=== PATIENT | male | born 1945 | race Caucasian/White ===

== ENCOUNTER 2017-06-16 15:31 | Observation (INO) | payer OTHER ==
--- NOTE | 2017-06-16 16:07 | RAD REPORT ---
EXAM DESCRIPTION: CT - Head Brain Wo Cont - 06/16/2017 3:59 pm CLINICAL HISTORY: Hallucinations, altered mental status COMPARISON: None. TECHNIQUE: Axial 5 mm thick images of the head were obtained without IV contrast. All CT scans are performed using dose optimization technique as appropriate and may include automated exposure control or mA/KV adjustment according to patient size. FINDINGS: No intracranial hemorrhage, mass, edema or shift of mid-line structures. No acute cortical based infarction. No cortical edema or sulcal effacement. 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 No abnormal extra-axial fluid collections. Ventricles are in propor tion to volume loss. Arterial calcifications are present. Mastoid air cells and visualized portions of the paranasal sinuses are clear. No acute bony findings. IMPRESSION: Moderate atrophy and mild to moderate chronic ischemic changes are present. No acute intracranial finding.
--- NOTE | 2017-06-16 16:16 | RAD REPORT ---
EXAM DESCRIPTION: [place] Single View06/16/2017 4:09 pm CLINICAL HISTORY: Chest pain COMPARISON: 2016 FINDINGS: The lungs appear clear of acute infiltrate. The heart is upper limits normal size IMPRESSION: No acute abnormalities displayed
[2017-06-16] MEDS ORDERED: NA CHLORIDE 0.9% 1,000 ML ONE (16:26)
[2017-06-16 16:33] LABS: Absolute Lymphocytes (CBC) 2.3 K/uL (0.7-4.9); Absolute Monocytes 0.8 K/uL (0.1-1.3); Absolute Neutrophil 4.9 K/uL (1.8-8.0); Basophils % 1.2 % (0-1.3); Eosinophils % 3.4 % (0-4.4); Hematocrit 33.5 % (39.6-49.0); Lymphocytes % 27.4 % (15.3-44.8); MCH 22.4 pg (27.0-35.0); MCV 71.2 fL (80-100); MPV 8.2 fL (7.6-11.3); Monocytes % 9.5 % (3.3-12.3); RBC Red Blood Cell Count 4.71 M/uL (4.33-5.43)
[2017-06-16 16:42] LABS: Protime INR 0.92
[2017-06-16 16:54] LABS: Bilirubin Direct 0.1 mg/dL (0-0.2); Bilirubin Total 0.5 mg/dL (0.3-1.2); C-Reactive Protein 7.6 mg/L (<10.0); CKMB Creatine Kinase MB 3.1 ng/ml (0.3-4.0); Protein, Total 6.9 g/dL (6.0-8.3)
[2017-06-16 17:00] LABS: Urine Amorphous Sediment 3+ /HPF (NONE SEEN); Urine Bacteria <20 /HPF (NONE SEEN); Urine Culture Reflex Order NOT NEEDED; Urine RBC <5 /HPF (NONE SEEN)
[2017-06-16 17:51] LABS: Ferritin 4.3 ng/ml (23.9-336.2)
[2017-06-16 18:05] LABS: Thyroid Stimulating Hormone 1.39 uIU/mL (0.34-5.60)
[2017-06-16 18:29] LABS: Urine Blood NEGATIVE (NEG); Urine Glucose NEGATIVE (NEG); Urine Protein NEGATIVE (NEG); Urine Specific Gravity 1.025 (1.005-1.030)
--- NOTE | 2017-06-16 18:29 | ER ---
Nurse's Notes [facility] Name: Vijay Conti Age: 72 yrs Sex: Male : 1945 Arrival Date: 06/16/2017 Time: 15:35 Bed 15 Private MD: Diagnosis: Altered mental status, unspecified;Iron deficiency anemia Presentation: 06/16 15:41 Presenting complaint: Child states: Patient reports hallucinations that started 2 days aj ago. Also reports getting lost today on his way home from work. 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 Transition of care: patient was not received from another setting of care. Onset of symptoms was June 14, 2017. Care prior to arrival: None. 15:41 Method Of Arrival: Ambulatory aj 15:41 Acuity: MARY ALICE 3 aj Triage Assessment: 15:43 General: Appears in no apparent distress. comfortable, Behavior is calm, cooperative, aj appropriate for age. Pain: Denies pain. Neuro: Level of Consciousness is awake, alert, obeys commands, Oriented to person, place, time, situation, Reports headache. Neuro: Financial Services Officer are equal bilaterally Moves all extremities. Full function Gait is steady, Speech is normal, Facial symmetry appears normal. Respiratory: Airway is patent Respiratory effort is even, unlabored, Respiratory pattern is regular, symmetrical. Derm: Skin is intact, is healthy with good turgor, Skin is pink, warm \\T\\ dry. normal. Historical: - Allergies: 15:43 Iodine; aj - Home Meds: 15:43 Cymbalta 60 mg Oral cpDR 1 cap once daily [Active]; pantoprazole 40 mg Oral TbEC 1 tab aj once daily [Active]; aspirin 81 mg Oral chew 1 tab once daily [Active]; ropinirole 4 mg Oral tab 1 tab [Active]; - PMHx: 15:43 gastric bypass; Hyperlipidemia; Hypertension; PROSTATE CA; Sleep Apnea; Umbilical aj hernia; Myocardial infarction; - PSHx: 15:43 Heart stents; shoulder surgery - bilateral; aj - Immunization history:: Adult Immunizations up to date. - Social history:: Smoking status: Patient uses tobacco products, smokes one-half pack cigarettes per day. Screenin:00 Abuse screen: Denies threats or abuse. Denies injuries from another. Nutritional sv screening: No deficits noted. Tuberculosis screening: No symptoms or risk factors identified. Fall Risk None identified. Assessment: 16:00 General: Appears in no apparent distress. comfortable, slender, well developed, sv Behavior is calm, cooperative, appropriate for age. Pain: Complains of pain in top of head and forehead Pain does not radiate. Pain currently is 3 out of 10 on a pain scale. Quality of pain is described as throbbing, Pain began "month" Is intermittent. Neuro: Level of Consciousness is awake, alert, obeys commands, Oriented to person, place, time, situation, Moves all extremities. Full function Gait is steady, Speech is normal, Facial symmetry appears normal, Reports headache frontal area, Denies blurred vision dizziness. Cardiovascular: Patient's skin is warm and dry. Pulses are 3+ in right radial artery and left radial artery. Respiratory: Respiratory effort is even, unlabored, Respiratory pattern is regular, symmetrical. Derm: Skin is pink, warm \\T\\ dry. Musculoskeletal: Range of motion: intact in all extremities. 17:26 Reassessment: Patient appears in no apparent distress at this time. No changes from sv previously documented assessment. Patient and/or family updated on plan of care and expected duration. Pain level reassessed. Patient is alert, oriented x 3, equal unlabored respirations, skin warm/dry/pink. 19:10 General: Appears in no apparent distress. comfortable, slender, well developed, ao Behavior is calm, cooperative, appropriate for age. Pain: Denies pain. Neuro: Level of Consciousness is awake, alert, obeys commands, Oriented to person, place, time, situation, Moves all extremities. Full function Gait is steady, Speech is normal, Facial symmetry appears normal. Cardiovascular: Patient's skin is warm and dry. Respiratory: Airway is patent Respiratory effort is even, unlabored, Respiratory pattern is regular, symmetrical. GI: No signs and/or symptoms were reported involving the gastrointestinal system. : No signs and/or symptoms were reported regarding the genitourinary system. Derm: Skin is pink, warm \\T\\ dry. Musculoskeletal: Range of motion: intact in all extremities. 20:11 Reassessment: Patient appears in no apparent distress at this time. No changes from ao previously documented assessment. Patient and/or family updated on plan of care and expected duration. Pain level reassessed. Patient is alert, oriented x 3, equal unlabored respirations, skin warm/dry/pink. Vital Signs: 15:43 BP 155 / 73; Pulse 74; Resp 19; Temp 97.8; Pulse Ox 100% on R/A; Weight 74.84 kg; aj Height 5 ft. 7 in. (170.18 cm); Pain 0/10; 16:46 BP 170 / 91; Pulse 61; Resp 19; Pulse Ox 100% ; sv 17:20 BP 149 / 74; Pulse 58 MON; Resp 15; Pulse Ox 100% ; ss 19:10 BP 154 / 79; Pulse 55; Resp 18; Pulse Ox 100% on R/A; Pain 0/10; ao 20:08 BP 141 / 79; Pulse 54; Resp 20; Pulse Ox 100% ; Pain 0/10; ao 15:43 Body Mass Index 25.84 (74.84 kg, 170.18 cm) aj 17:20 Sinus bradycardia ss ED Course: 15:35 Patient arrived in ED. sb2 15:42 Triage completed. aj 15:43 Arm band placed on right wrist. Patient placed in an exam room, on a stretcher. aj 15:45 Nasrin Berrios FNP-C is PHCP. snw 15:45 Navin Mendez MD is Attending Physician. snw 15:46 Kady Russo, CHAPO is Primary Nurse. sv 15:47 Patient has correct armband on for positive identification. Bed in low position. Adult sv w/ patient. 15:[address] via wheelchair. sv 15:58 CT completed. Patient tolerated procedure well. Patient moved back from CT. nj 16:00 CT Head Brain wo Cont In Process Unspecified. EDMS 16:00 environmental monitoring specialist on. Pulse ox on. NIBP on. Door closed. Head of bed elevated. sv 16:03 Patient moved back from CT. sv 16:05 Initial lab(s) drawn, by me, sent to lab. First set of blood cultures drawn by me. sv Inserted saline lock: 20 gauge in right antecubital area, using aseptic technique. Blood collected. Flushed right antecubital with 5 ml normal saline. 16:08 X-ray completed. Portable x-ray completed in exam room. Patient tolerated procedure bb2 well. 16:09 Chest Single View XRAY In Process Unspecified. EDMS 16:20 Second set of blood cultures drawn by me. sv 18:29 Nestor Gooden MD is Hospitalizing Provider. snw 19:11 Report given to jerald COWAN. sv 19:16 Primary Nurse role handed off by Kady Russo RN sv 19:33 Jerald Sorensen RN is Primary Nurse. ao 20:45 Patient moved to [facility] via wheelchair. jg1 21:01 No provider procedures requiring assistance completed. Patient admitted, IV remains in ao place. Administered Medications: 16:30 Drug: NS 0.9% (30 ml/kg) 30 ml/kg Route: IV; Rate: bolus; Site: right antecubital; sv 18:45 Follow up: Response: No adverse reaction; IV Status: Completed infusion hb 18:44 Drug: Thiamine 100 mg Route: IV; Rate: calculated rate; Site: right antecubital; hb 20:30 Follow up: IV Status: Completed infusion ao Outcome: 18:29 Decision to Hospitalize by Provider. snw 21:01 Admitted to Med/surg accompanied by tech, room 202, with chart, Other Patient was take ao to MRI and then to his room Report called to CHAPO Zeng 21:01 Condition: stable 21:01 Instructed on the need for admit. 21:03 Patient left the ED. ao Signatures: Dispatcher [employer] EDMS Kady Russo, RN Heide Perez RN Nasrin Santoyo, ENTRY LEVEL SALES REPRESENTATIVE-C ENTRY LEVEL SALES REPRESENTATIVE-Geraldine Cardenas jg1 Susan Smith RN RN Jerald Sorensen RN RN ao Baxter, Heather, RN RN hb Jordan, Nathan nj Bock, Brittany 2 Enma Alan sb2 Corrections: (The following items were deleted from the chart) 15:49 11:30 IV Status: Completed infusion [facility] 21:03 21:01 Discharged to home ambulatory, ao ao
--- NOTE | 2017-06-16 18:30 | EDPHYS ---
Physician Documentation [facility] Name: Vijay Conti Age: 72 yrs Sex: Male : 1945 Arrival Date: 06/16/2017 Time: 15:35 Bed 15 Private MD: ED Physician Navin Mendez HPI: 06/16 16:37 This 72 yrs old Male presents to ER via Ambulatory with complaints of Altered snw Mental Status. 16:37 The patient presents with confusion. Onset: The symptoms/episode began/occurred 3 snw day(s) ago, intermittent. Possible causes: unknown. Associated signs and symptoms: The patient has no apparent associated signs or symptoms. Current symptoms: In the emergency department the patient's symptoms have resolved. The patient has not experienced similar symptoms in the past. The patient has not recently seen a physician, the patient's primary care provider is Dr. Dr. Gooden. Historical: - Allergies: 15:43 Iodine; aj - Home Meds: 15:43 Cymbalta 60 mg Oral cpDR 1 cap once daily [Active]; pantoprazole 40 mg Oral TbEC 1 tab aj once daily [Active]; aspirin 81 mg Oral chew 1 tab once daily [Active]; ropinirole 4 mg Oral tab 1 tab [Active]; - PMHx: 15:43 gastric bypass; Hyperlipidemia; Hypertension; PROSTATE CA; Sleep Apnea; Umbilical aj hernia; Myocardial infarction; - PSHx: 15:43 Heart stents; shoulder surgery - bilateral; aj - Immunization history:: Adult Immunizations up to date. - Social history:: Smoking status: Patient uses tobacco products, smokes one-half pack cigarettes per day. ROS: 16:36 Eyes: Negative for injury, pain, redness, and discharge, ENT: Negative for injury, snw pain, and discharge, Neck: Negative for injury, pain, and swelling, Cardiovascular: Negative for chest pain, palpitations, and edema, Respiratory: Negative for shortness of breath, cough, wheezing, and pleuritic chest pain, Abdomen/GI: Negative for abdominal pain, nausea, vomiting, diarrhea, and constipation, Back: Negative for injury and pain, : Negative for injury, bleeding, discharge, and swelling, MS/Extremity: Negative for injury and deformity, Skin: Negative for injury, rash, and discoloration. 16:36 Constitutional: Positive for body aches, malaise. 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 Exam: 16:35 Constitutional: This is a well developed, well nourished patient who is awake, alert, snw and in no acute distress. Head/Face: Normocephalic, atraumatic. Eyes: Pupils equal round and reactive to light, extra-ocular motions intact. Lids and lashes normal. Conjunctiva and sclera are non-icteric and not injected. Cornea within normal limits. Periorbital areas with no swelling, redness, or edema. ENT: Nares patent. No nasal discharge, no septal abnormalities noted. Tympanic membranes are normal and external auditory canals are clear. Oropharynx with no redness, swelling, or masses, exudates, or evidence of obstruction, uvula midline. Mucous membranes moist. Neck: Trachea midline, no thyromegaly or masses palpated, and no cervical lymphadenopathy. Supple, full range of motion without nuchal rigidity, or vertebral point tenderness. No Meningismus. Chest/axilla: Normal chest wall appearance and motion. Nontender with no deformity. No lesions are appreciated. Cardiovascular: Regular rate and rhythm with a normal S1 and S2. No gallops, murmurs, or rubs. Normal PMI, no JVD. No pulse deficits. Respiratory: Lungs have equal breath sounds bilaterally, clear to auscultation and percussion. No rales, rhonchi or wheezes noted. No increased work of breathing, no retractions or nasal flaring. Abdomen/GI: Soft, non-tender, with normal bowel sounds. No distension or tympany. No guarding or rebound. No evidence of tenderness throughout. Back: No spinal tenderness. No costovertebral tenderness. Full range of motion. Skin: Warm, dry with normal turgor. Normal color with no rashes, no lesions, and no evidence of cellulitis. MS/ Extremity: Pulses equal, no cyanosis. Neurovascular intact. Full, normal range of motion. 16:35 Neuro: Orientation: is normal, to person, place, time \T\ situation. Mentation: appropriate for stated age, Memory: immediate memory is intact, remote memory is intact. Cranial nerves: grossly normal, Cerebellar function: is grossly normal, Motor: is normal, Sensation: is normal, Gait: is steady. Vital Signs: 15:43 BP 155 / 73; Pulse 74; Resp 19; Temp 97.8; Pulse Ox 100% on R/A; Weight 74.84 kg; aj Height 5 ft. 7 in. (170.18 cm); Pain 0/10; 16:46 BP 170 / 91; Pulse 61; Resp 19; Pulse Ox 100% ; sv 17:20 BP 149 / 74; Pulse 58 MON; Resp 15; Pulse Ox 100% ; ss 19:10 BP 154 / 79; Pulse 55; Resp 18; Pulse Ox 100% on R/A; Pain 0/10; ao 20:08 BP 141 / 79; Pulse 54; Resp 20; Pulse Ox 100% ; Pain 0/10; ao 15:43 Body Mass Index 25.84 (74.84 kg, 170.18 cm) aj 17:20 Sinus bradycardia ss MDM: 15:45 Patient medically screened. snw 16:41 Data reviewed: vital signs, nurses notes. Data interpreted: Pulse oximetry: on room air snw is 100 %. Interpretation: normal. Counseling: I had a detailed discussion with the patient and/or guardian regarding: the historical points, exam findings, and any diagnostic results supporting the discharge/admit diagnosis, the presence of at least one elevated blood pressure reading (>120/80) during this emergency department visit, lab results, radiology results. Physician consultation: Nestor Gooden MD was called at 16:42, was contacted at 16:42, regarding consult, patient's condition, MRI brain without and with. 06/16 15:50 Order name: Urine Culture [facility] 06/16 15:50 Order name: Urine Microscopic Only; Complete Time: 17:18 snw 06/16 15:50 Order name: T\T\S; Complete Time: 18:04 snw 06/16 15:50 Order name: Amylase, Serum; Complete Time: 16:56 snw 06/16 15:50 Order name: Basic Metabolic Panel; Complete Time: 16:56 snw 06/16 15:50 Order name: Blood Culture Adult (2) [facility] 06/16 15:50 Order name: BNP; Complete Time: 17:00 snw 06/16 15:50 Order name: C-Reactive Protein; Complete Time: 16:56 snw 04/12 15:50 Order name: CBC with Diff; Complete Time: 16:58 06/16 15:50 Order name: Ckmb; Complete Time: 16:56 06/16 15:50 Order name: CPK; Complete Time: 16:56 06/16 15:50 Order name: Lactate; Complete Time: 16:56 06/16 15:50 Order name: LFT's; Complete Time: 16:56 06/16 15:50 Order name: Lipase; Complete Time: 16:56 06/16 15:50 Order name: CT Head Brain wo Cont; Complete Time: 16:22 06/16 15:50 Order name: Procalcitonin; Complete Time: 17:18 06/16 15:50 Order name: Protime (+inr); Complete Time: 16:56 06/16 15:50 Order name: Ptt, Activated; Complete Time: 16:56 06/16 15:50 Order name: Sed Rate; Complete Time: 16:58 06/16 15:50 Order name: Troponin (emerg Dept Use Only); Complete Time: 16:56 06/16 15:50 Order name: Chest Single View XRAY; Complete Time: 16:22 06/16 16:41 Order name: Urine Dipstick--Ancillary (enter results); Complete Time: 18:30 06/16 16:59 Order name: Iron Level; Complete Time: 18:11 06/16 16:59 Order name: TIBC; Complete Time: 18:11 06/16 16:59 Order name: TSH; Complete Time: 18:11 06/16 18:28 Order name: B12; Complete Time: 19:27 06/16 18:28 Order name: Rpr 06/16 15:50 Order name: Accucheck; Complete Time: 16:30 06/16 15:50 Order name: Cardiac monitoring; Complete Time: 16:30 06/16 15:50 Order name: EKG - Nurse/Tech; Complete Time: 16:45 06/16 15:50 Order name: IV Saline Lock - Large Bore; Complete Time: 16:30 06/16 15:50 Order name: Labs collected and sent; Complete Time: 16:31 snw 06/16 15:50 Order name: O2 Per Protocol; Complete Time: 16:31 snw 06/16 15:50 Order name: O2 Sat Monitoring; Complete Time: 16:31 snw 06/16 15:50 Order name: Urine Dipstick-Ancillary (obtain specimen); Complete Time: 17:19 snw 06/16 18:00 Order name: EKG Electrocardiogram EDMS Administered Medications: 16:30 Drug: NS 0.9% (30 ml/kg) 30 ml/kg Route: IV; Rate: bolus; Site: right antecubital; sv 18:45 Follow up: Response: No adverse reaction; IV Status: Completed infusion hb 18:44 Drug: Thiamine 100 mg Route: IV; Rate: calculated rate; Site: right antecubital; hb 20:30 Follow up: IV Status: Completed infusion ao Disposition: 06/17 15:37 Co-signature as Attending Physician, Navin Mendez MD I agree with the assessment and wa plan of care. Disposition: 06/16/17 18:29 Hospitalization ordered by Nestor Gooden for Observation. Preliminary diagnosis are Altered mental status, unspecified, Iron deficiency anemia. - Bed requested for Telemetry/MedSurg (observation). - Status is Observation. ao - Condition is Stable. - Problem is new. - Symptoms have worsened. UTI on Admission? No Signatures: Dispatcher [employer] EDMS Kady Russo RN RN sv Webb, Martha, RN RN mw Myers, Amanda, RN RN aj Therrien, Shelly, BAND STRAIGHTENER-C BAND STRAIGHTENER-Csnw Jerald Sorensen RN RN ao Baxter, Heather, RN RN Navin Mendez MD MD ri Corrections: (The following items were deleted from the chart) 04 17:21 16:41 Brain W/Wo Cont+MRI.RAD.BRZ ordered. EDMS EDMS 20:15 17:20 MR STROKE PROTOCOL+MRI.RAD.BRZ ordered. EDMS EDMS
[2017-06-16] MEDS ORDERED: THIAMINE 200 MG/2 ML INJ ONE (18:32)
[2017-06-16 18:44] LABS: RPR Titer ND
--- NOTE | 2017-06-16 21:27 | P.HP ---
Certification for Inpatient Patient admitted to: Observation With expected LOS: <2 Midnights Practitioner: I am a practitioner with admitting privileges, knowledge of patient current condition, hospital course, and medical plan of care. Services: Services provided to patient in accordance with Admission requirements found in Title 42 Section 412.3 of the Code of Federal Regulations Patient History Date of Service: 06/16/17 Reason for admission: ALTERED MENTAL STATUS History of Present Illness: MR. STEELE USED TO BE A DIABETIC, SMOKER UNTIL HE HAD GASTRIC BYPASS SURGERY DONE COUPLE OF YEARS AGO. SINCE THEN HE HAS NOT HAD HIGH GLUCOSE. HE IS A SMOKER AND DEPRESSED GENTLEMAN. HE ABOUT A WEEK AGO STARTED TO GET HALLUCINATIONS, VISUAL- SAW SNAKES WHERE THERE WERE NONE. HE WAS SENT HOME FRO WORK BUT HE GOT LOST COMING TO HOME, THE WAY HE KNOWS VERY WELL. HE DENIES ANY HEADACHES, NAUSEA, VOMITING, DOUBLE VISION ETC. Allergies iodine Allergy (Unverified 06/16/17 21:07) Unknown Home Medications: Ascorbic Acid [Vitamin C] 1 tab PO DAILY 12/15/15 Duloxetine HCl 60 mg PO BEDTIME 12/15/15 Multivitamin [Multiple Vitamins] 1 tab PO DAILY 12/15/15 Pantoprazole [Protonix Tab] 40 mg PO BEDTIME 12/15/15 Ropinirole HCl 4 mg PO DAILY 12/15/15 Sucralfate [Sucralfate] 1 tab PO QID 12/15/15 - Past Medical/Surgical History Diabetic: No -: hx of diabetes resolved with gastric bypass -: prostate ca -: mi -: BENIGN TUMOR-RIGHT SIDE OF CHIN -: SLEEP APNEA RESOLVED WITH GB -: GERD -: PNEUMONIA -: LT AND RT ROTATOR CUFF REPLACEMENT -: GASTRIC BYPASS -: HEART CATH WITH TWO STENTS -: COLONOSCOPY 10/23/15 -: EGD 10/2015 -: HERNIA REPAIR - Social History Alcohol use: No CD- Drugs: No Caffeine use: Yes Review of Systems 10-point ROS is otherwise unremarkable Neurological: Confusion Physical Examination - Vital Signs Temperature: 97.8 F Blood Pressure: 141/79 Pulse: 54 Respirations: 20 - Physical Exam General: Alert, In no apparent distress HEENT: Atraumatic, PERRLA, Mucous membr. moist/pink, EOMI, Sclerae nonicteric Neck: Supple, 2+ carotid pulse no bruit, No LAD, Without JVD or thyroid abnormality Respiratory: Clear to auscultation bilaterally, Normal air movement Cardiovascular: Regular rate/rhythm, Normal S1 S2 Gastrointestinal: Normal bowel sounds, No tenderness Musculoskeletal: No tenderness Integumentary: No rashes Neurological: Normal gait, Normal speech, Normal strength at 5/5 x4 extr, Normal tone, Normal affect Lymphatics: No axilla or inguinal lymphadenopathy - Studies Laboratory Data (last 24 hrs) 06/16/17 16:05: PT 10.8, INR 0.92, APTT 29.0 06/16/17 16:05: WBC 8.3, Hgb 10.5 L, Hct 33.5 L, Plt Count 229 06/16/17 16:05: B-Natriuretic Peptide 192 H 06/16/17 16:05: Sodium 136, Potassium 4.0, BUN 19, Creatinine 1.01, Glucose 101 , Total Bilirubin 0.5, AST 23, ALT 14, Alkaline Phosphatase 104, Amylase 83, Lipase 33 Assessment and Plan - Problems (Diagnosis) (1) Altered mental status Current Visit: Yes Status: Acute Plan: HE DOES NOT SEEM TO HAVE DEHYDRATION, SEPSIS OR ANY INFECTION RELATED CONFUSION. THIS MAY BE THIAMINE DEFICIENCY FROM GASTRIC BYPASS SURGERY. HE WILL GET MRI IN AM WITH CONTRAST TO CHECK FOR STROKE OR TUMOR. HE HAS SOME VASCULAR DEMENTIA LIKE SYMPTOMS. I WILL TRY TO HELP THIS WITH THIAMIN IV AND THEN ORALLY. B12 IS NORMAL. RPR PENDING. (2) Ischemic brain damage Current Visit: Yes Status: Acute (3) Ischemic brain damage Current Visit: Yes Status: Chronic Plan: SMOKING RELATED HE STILL SMOKES HE HAS VERY LOW SELF ESTEEM AND MAY CONTINUE TO SMOKE. HE DOES NOT WANT MEDICATIONS FOR DEPRESSION. (4) Iron deficiency Current Visit: Yes Status: Chronic Plan: GI DOCTOR SHOULD DO OUTPATIENT EVALUATION. - Advance Directives Does patient have a Living Will: No Does patient have a Durable POA for Healthcare: No
[2017-06-16 21:43] LABS: RPR (Rapid Plasma Reagin) NON-REACT (NON-REACT)
--- NOTE | 2017-06-16 22:21 | RAD REPORT ---
EXAM DESCRIPTION: MRI - Stroke Protocol - 06/16/2017 9:29 pm CLINICAL HISTORY: CVA, altered mental status COMPARISON: CT head same date TECHNIQUE: Sagittal T1- weighted images were obtained along with PD/heavily T2- weighted and T2-FLAI R images. Axial DWI and ADC mapping sequences were also obtained. Coronal heavily T2- weighted images were obtained. MRA head imaging performed with source images and 3D reconstruction images reviewed. MRA neck imaging was performed with source and 3D reconstruction imaging reviewed. Post contrast T1 i maging was performed. A 17 ml GD dosage was utilized. FINDINGS: No intracranial hemorrhage, mass or acute infarction. There is no edema or shift of midlin e structures. No extra-axial fluid collections. Blanc-matter/white matter junction is preserved. Signa l voids are seen as a normal finding in the major intracranial vessels. No significant atrophy or chr onic ischemic change. Mastoid air cells and paranasal sinuses are clear. No globe or orbit abnormality. MRA Head imaging shows no aneurysm or vascular malformation. No significant atherosclerotic disease o r vessel narrowing seen. MRA Neck imaging shows no significant atherosclerotic disease or vessel narrowing seen. No dissection seen.Aortic arch is 3 vessel. Right vertebral artery is dominant. No origins stenoses seen. IMPRESSION: No acute infarction. No hemorrhage, mass or acute intracranial finding. No significant atrophy or chronic ischemic change. MRA head and neck imaging shows no significant atherosclerotic change or other significant vascular f inding.
[2017-06-16] MEDS: NA CHLORIDE 0.9% 1,000 ML IV SCH (22:32)
[2017-06-16 23:28] VITALS: BMI 26.9
[2017-06-17 02:20] VITALS: O2SAT 99
[2017-06-17 06:18] LABS: CKMB Creatine Kinase MB 2.4 ng/ml (0.3-4.0)
[2017-06-17] MEDS ORDERED: THIAMINE 200 MG/2 ML INJ IVP SCH ×2 (09:00)
[2017-06-17] MEDS ORDERED: ASPIRIN EC 81 MG TAB PO SCH (09:00)
[2017-06-17] MEDS: NA CHLORIDE 0.9% 1,000 ML IV SCH (10:56)
[2017-06-17 12:18] VITALS: BP 159/61; TEMP 97.3
--- NOTE | 2017-06-17 13:09 | P.DS ---
Admission Date: 06/16/17 Discharge Date: 06/17/17 Disposition: ROUTINE DISCHARGE Discharge Condition: FAIR Reason for Admission: ALTERED MENTAL STATUS - Problems (1) Altered mental status Onset Date: 06/17/17 Current Visit: Yes Status: Acute (2) Ischemic brain damage Onset Date: 06/17/17 Current Visit: Yes Status: Acute (3) Ischemic brain damage Onset Date: 06/17/17 Current Visit: Yes Status: Chronic (4) Iron deficiency Onset Date: 06/17/17 Current Visit: Yes Status: Chronic Brief History of Present Illness: MR. STEELE USED TO BE A DIABETIC, SMOKER UNTIL HE HAD GASTRIC BYPASS SURGERY DONE COUPLE OF YEARS AGO. SINCE THEN HE HAS NOT HAD HIGH GLUCOSE. HE IS A SMOKER AND DEPRESSED GENTLEMAN. HE ABOUT A WEEK AGO STARTED TO GET HALLUCINATIONS, VISUAL- SAW SNAKES WHERE THERE WERE NONE. HE WAS SENT HOME FRO WORK BUT HE GOT LOST COMING TO HOME, THE WAY HE KNOWS VERY WELL. HE DENIES ANY HEADACHES, NAUSEA, VOMITING, DOUBLE VISION ETC. MR STEELE IS STABLE, HE HAS NO CONFUSION . HE REFUSES TO QUIT SMOKING. HIS EEG REPORT IS PENDIG. MRI IS NEGATIVE FOR CVA RESUME THIAMINE . FU IN OFFICE ONE WEEK Vital Signs/Physical Exam: Temp Pulse Resp BP Pulse Ox 97.3 F 64 18 159/61 H 100 06/17/17 12:00 06/17/17 12:00 06/17/17 12:00 06/17/17 12:00 06/17/17 12:00 Laboratory Data at Discharge: WBC 8.3 K/uL (4.3-10.9) 06/16/17 16:05 Hgb 10.5 g/dL (13.6-17.9) L 06/16/17 16:05 Hct 33.5 % (39.6-49.0) L 06/16/17 16:05 Plt Count 229 K/uL (152-406) 06/16/17 16:05 PT 10.8 SECONDS (9.5-12.5) 06/16/17 16:05 INR 0.92 06/16/17 16:05 APTT 29.0 SECONDS (24.3-36.9) 06/16/17 16:05 Sodium 136 mEq/L (135-145) 06/16/17 16:05 Potassium 4.0 mEq/L (3.6-5.0) 06/16/17 16:05 BUN 19 mg/dL (6-20) 06/16/17 16:05 Creatinine 1.01 mg/dL (0.61-1.24) 06/16/17 16:05 Glucose 101 mg/dL (65-120) 06/16/17 16:05 Total Bilirubin 0.5 mg/dL (0.3-1.2) 06/16/17 16:05 AST 23 IU/L (10-42) 06/16/17 16:05 ALT 14 IU/L (10-60) 06/16/17 16:05 Alkaline Phosphatase 104 IU/L (42-121) 06/16/17 16:05 B-Natriuretic Peptide 192 pg/ml (<=100) H 06/16/17 16:05 Triglycerides 111 mg/dL (35-160) 06/17/17 04:36 Cholesterol 140 mg/dL (<200) 06/17/17 04:36 HDL Cholesterol 49 mg/dL (27-67) 06/17/17 04:36 Cholesterol/HDL Ratio 2.86 06/17/17 04:36 Amylase 83 U/L (28-100) 06/16/17 16:05 Lipase 33 U/L (22-51) 06/16/17 16:05 Home Medications: Ascorbic Acid [Vitamin C] 500 mg PO BID 06/16/17 Aspirin 81 mg PO EVERY 7TH DAY 06/16/17 Multivitamin [Multiple Vitamins] 1 tab PO DAILY 06/16/17 Pantoprazole [Protonix Tab] 40 mg PO DAILY 06/16/17 Ropinirole HCl 4 mg PO TID 06/16/17 Trazodone [Desyrel] 50 mg PO BEDTIME 06/16/17 Duloxetine HCl 60 mg PO DAILY #30 capsule. 06/17/17 Thiamine HCl 100 mg PO DAILY #100 tablet 06/17/17 New Medications: Duloxetine HCl 60 mg PO DAILY #30 capsule. Thiamine HCl 100 mg PO DAILY #100 tablet
--- NOTE | 2017-06-19 22:49 | EKG ---
Test Date: 2017-06-16 Test Time: 16:42:17 Radiology Specialist: KATELYN MEASUREMENT RESULTS: Intervals: Rate: 56 OR: 156 QRSD: 96 QT: 424 QTc: 409 Batchelor: P: 63 OR: 156 QRS: 9 T: -29 INTERPRETIVE STATEMENTS: Sinus bradycardia Minimal voltage criteria for LVH, may be normal variant Borderline ECG Compared to ECG 07/15/2015 10:57:15 Left ventricular hypertrophy now present Sinus rhythm no longer present Electronically Signed On 06-19-17 22:49:13 CDT by Satya Anderson
--- NOTE | 2017-06-21 12:06 | EEG ---
CHART: [id number] TEST ID#: [id number] DATE OF STUDY: THE EEG WAS RECORDED PORTABLE IN THE PATIENT'S ROOM ON A 17 CHANNEL MACHINE. ELECTRODES WERE APPLIED IN THE USUAL MANNER USING THE INTERNATIONAL 10-20 SYSTEM. THE WAKING BACKGROUND RHYTHM IN THIS RECORD CONSISTS OF WELL DEVELOPED AND WELL ORGANIZED WAVES OF 10 HZ., MAXIMAL IN THE POSTERIOR HEAD REGIONS WHICH ATTENUATE NORMALLY WITH EYE OPENING. LOW-VOLTAGE 18-22 HZ ACTIVITY IS EXPRESSED IN THE FRONTAL REGIONS. THERE ARE NO FOCAL OR LATERALIZING FEATURES. NO EPILEPTIFORM ACTIVITY APPEARS. SLEEP OCCURRED NATURALLY. IN ADDITION NORMAL SLEEP PATTERNS ARE PRESENT. HYPERVENTILATION WAS NOT PERFORMED. PHOTIC STIMULATION PRODUCED FAIR DRIVING BILATERALLY. IMPRESSION: NORMAL EEG FOR THE AGE OF THE PATIENT IN [place], DROWSINESS AND SLEEP.
== END 2017-06-17 15:57 | disposition home or self-care (01) ==
LOC: ER 15:31 → ERHOLD 19:15 → 2ND 20:12
PROVIDERS: ADMIT Internal Medicine; ATTEND Internal Medicine
DX: R41.82 Altered mental status, unspecified (principal); I67.82 Cerebral ischemia; F32.9 Major depressive disorder, single episode, unspecified; D50.9 Iron deficiency anemia, unspecified; F17.210 Nicotine dependence, cigarettes, uncomplicated; Z98.84 Bariatric surgery status; Z85.46 Personal history of malignant neoplasm of prostate; Z95.5 Presence of coronary angioplasty implant and graft
CPT/HCPCS: 36415; 70450; 70544; 70549; 70553; 71045; 80048; 80061; 80076; 82150; 82550 ×2; 82553 ×2; 82607; 82728; 82962 ×2; 83540; 83605; 83690; 83880; 84145; 84443; 84466; 84484; 85025; 85610; 85652; 85730; 86140; 86592; 86850; 86900; 86901; 87040 ×2; 87086; 93005; 95816; 96365; 96366; 99285; A9577; G0378 ×2; J3411 ×3; J7030 ×2; 81003; 81015; 87088

== ENCOUNTER 2018-06-19 12:41 | Day surgery (SDC) | payer OTHER ==
--- OUTSIDE RECORDS SUMMARY | 2018-06-19 12:43 | XMS REPORT ---
:1945 [facility] Address [address] [place] [address] Dr. Regalado [address] [place] [address] Care Team Providers Name Role Phone Unavailable Unavailable Unavailable Problems This patient has no known problems. Allergies, Adverse Reactions, Alerts This patient has no known allergies or adverse reactions. Medications This patient has no known medications.
[2018-06-19] MEDS ORDERED: NEO/POLY/DEX OPTH 3.5 GM TUBE EACH EYE ONE (12:48)
[2018-06-19] MEDS ORDERED: TISSEEL VH 2 ML KIT TOP ONE (12:55)
[2018-06-19] MEDS ORDERED: NA CHLORIDE 0.9% 500 ML ONE (13:29)
[2018-06-19] MEDS: BUPIVACAINE 0.25% PF 10 ML VIAL ONE ×2 (14:51→15:15)
[2018-06-19] MEDS: LIDOCAINE 2% MPF 5 ML VIAL ONE ×3 (14:51→15:15)
[2018-06-19] MEDS: TETRACAINE HCL 0.5% 4ML OPTH ONE ×2 (14:51→15:14)
[2018-06-19] MEDS ORDERED: LIDOCAINE 2% MPF 5 ML VIAL ONE (15:03)
[2018-06-19] MEDS ORDERED: PROPOFOL 200 MG/20 ML VIAL IV ONE (15:04)
[2018-06-19] MEDS ORDERED: BSS OPTHALMIC SOL 15 ML BOT OPTH ONE (15:05)
[2018-06-19] MEDS ORDERED: NS 0.9% VIAL 0 ML ONE (15:26)
--- NOTE | 2018-06-19 16:17 | P.BOP ---
Preoperative diagnosis: Pterygium with conjunctival autograft OS Postoperative diagnosis: Same Primary procedure: Pterygium excision with conjunctival autograft OS Estimated blood loss: None Anesthesia: Local (Subtenon's infusion with anethesia for cataract surgery) Complications: None Transferred to: Other (Day surgery) Condition: Good
[2018-06-19 16:56] VITALS: BP 146/54; TEMP 97.4; O2SAT 100
--- NOTE | 2018-06-20 03:05 | OP ---
Date of Procedure: 06/19/2018 Surgeon: Isamar Martinez MD Anesthesiologist: 1. Landry Olvera CRNA. 2. Lalo Gusman MD. Diagnosis: Pterygium inducing astigmatism, OS. Procedure: Pterygium with conjunctival autograft. Anesthesia: Per cataract surgery. Complications: None. Description Of Procedure: In the holding area, the patient was prepped and draped in the usual fashion for ophthalmic surgery, however, Betadine was not used. A conjunctival incision was made at the inferior edge of the pterygium and a 1:1 mixture of 0.25% bupivacaine and 2% Xylocaine was placed around the eye globe, approximately 5 cc was used. The patient was then brought to the operative room where he was prepped and draped except for the use of Betadine. A lid speculum was placed in the left eye. The bulbar pterygium was outlined with a marking pen and excised with Viky scissors. Weck-Cels were used to remove the pterygium from the cornea. A bur was used to smooth the corneal surface. Bipolar cautery was used for hemostasis. A 7-0 Vicryl suture was placed in the superior limbus as a traction suture. A 5 x 8 mm conjunctival graft was harvested. Fibrin and thrombin were placed on the bare sclera nasally where the prior pterygium had been removed and the conjunctival autograft was placed over the bare sclera. Two minutes was allowed to elapse. Thrombin, then fibrin was used to reapproximate the superior conjunctiva. A neomycin, polymyxin and dexamethasone ointment were placed in the eye. The eye was patched with a soft cotton patch and [place] metal shield. The patient was discharged to home in good condition and is to follow up with Dr. Martinez in the morning. STEFAN/TOMMY Voice ID: [id number] Report ID: [id number] NIKKI
== END 2018-06-19 16:38 | disposition home or self-care (01) ==
LOC: OR 12:41
PROVIDERS: ATTEND Ophthalmology Retina Specialist
PROC: 08U Eye, Supplement (ICD-10-PCS; 2018-06-19)
PROC: 08B Eye, Excision (ICD-10-PCS; principal; 2018-06-19 12:30)
DX: H11.002 Unspecified pterygium of left eye (principal); H52.202 Unspecified astigmatism, left eye; E78.00 Pure hypercholesterolemia, unspecified; J44.9 Chronic obstructive pulmonary disease, unspecified; Z79.899 Other long term (current) drug therapy
CPT/HCPCS: 65426; 88305; J2704; 88304

== ENCOUNTER 2018-08-21 12:25 | Day surgery (SDC) | payer OTHER ==
[2018-08-21 12:44] VITALS: TEMP 97.2
--- OUTSIDE RECORDS SUMMARY | 2018-08-21 12:49 | XMS REPORT ---
:1945 Author Organization [facility] Address [address] [place] [address] Dr. Regalado [address] [place] [address] Care Team Providers Name Role Phone Unavailable Unavailable Unavailable Problems This patient has no known problems. Allergies, Adverse Reactions, Alerts This patient has no known allergies or adverse reactions. Medications This patient has no known medications.
[2018-08-21] MEDS ORDERED: NA CHLORIDE 0.9% 500 ML ONE (12:55)
[2018-08-21] MEDS: BUPIVACAINE 0.25% PF 10 ML VIAL ONE ×2 (13:28→13:53)
[2018-08-21] MEDS: LIDOCAINE 2% MPF 5 ML VIAL ONE ×2 (13:28→13:53)
[2018-08-21] MEDS: TETRACAINE HCL 0.5% 4ML OPTH ONE ×3 (13:28→14:10)
[2018-08-21] MEDS ORDERED: LIDOCAINE 2% MPF 5 ML VIAL ONE (13:39)
[2018-08-21] MEDS ORDERED: PROPOFOL 200 MG/20 ML VIAL IV ONE (13:39)
[2018-08-21] MEDS ORDERED: BSS OPTHALMIC SOL 15 ML BOT OPTH ONE (13:40)
[2018-08-21] MEDS: TISSEEL VH 2 ML KIT TOP ONE ×2 (14:13→14:34)
[2018-08-21] MEDS: NEO/POLY/DEX OPTH 3.5 GM TUBE ONE ×2 (14:14→14:42)
--- NOTE | 2018-08-21 15:01 | P.BOP ---
Preoperative diagnosis: Progressive pterygium OD Postoperative diagnosis: Same Primary procedure: Pterygium excision with conjunctival autograft OD Estimated blood loss: None Anesthesia: Local (Subtenon's infusion with anesthesia for cataract surgery) Complications: None Transferred to: Other (Day surgery) Condition: Good
[2018-08-21 15:06] VITALS: BP 137/67; O2SAT 100
--- NOTE | 2018-08-22 01:10 | OP ---
Date of Procedure: 08/21/2018 Surgeon: Isamar Martinez MD Anesthesiologist: Peewee Gilliam CRNA and Talat Holt MD Diagnosis: Progressive pterygium, left eye. Procedure Performed: Pterygium with conjunctival autograft, left eye. Anesthesia: Per cataract surgery. Complications: None. Description Of Procedure: The patient was given a subtenon's block in the preop area. This consisted of prepping the eye with alcohol, draping and putting a lid speculum in the eye, making a conjunctival incision on the inferior aspect of the pterygium and infusing 1:1 mixture of 2% xylocaine and 0.25% bupivacaine. Approximately 5 cc was used. A Honan balloon was placed on the eye for approximately 5 minutes. The patient was brought to the operative room where he was prepped with alcohol and draped. A lid speculum was placed in the right eye. A marking pen was used to nicole the bulbar pterygium. Viky scissors were used to remove the bulbar pterygium and Weck-Cels were used to dissect the pterygium head from the cornea. The specimen was submitted to pathology. A maxine was used to smooth the corneal surface. Bipolar cautery was used for hemostasis. A 7-0 Vicryl traction suture was placed through the superior limbus and an 8 x 8 mm conjunctiva graft was harvested. Tisseel glue was placed on the bare sclera nasally and conjunctival graft was placed and 2 minutes were allowed to elapse. Tisseel glue was then placed in the area of the conjunctival autograft harvest. The conjunctiva was reapproximated in 2 minutes were again allowed to elapse. Neomycin, polymyxin, dexamethasone ointment was placed in the eye and the eye was patched with soft cotton patch and [place] metal shield. The patient was discharged to home in good condition. He was given a prescription for Tylenol No. 3 to take every 4 hours as needed for moderate pain, 21 pills were dispensed. He is to follow up with Dr. Martinez in the morning. STEFAN/TOMMY Voice ID: [id number] Report ID: [id number] NIKKI
== END 2018-08-21 15:17 | disposition home or self-care (01) ==
LOC: OR 12:25
PROVIDERS: ATTEND Ophthalmology Retina Specialist
PROC: 08U007Z Supplement of Right Eye with Autologous Tissue Substitute, Open Approach (ICD-10-PCS; 2018-08-21)
PROC: 08B Eye, Excision (ICD-10-PCS; principal; 2018-08-21 12:00)
DX: H11.041 Peripheral pterygium, stationary, right eye (principal); H25.13 Age-related nuclear cataract, bilateral; H25.013 Cortical age-related cataract, bilateral; H25.043 Posterior subcapsular polar age-related cataract, bilateral; E78.00 Pure hypercholesterolemia, unspecified; I25.2 Old myocardial infarction; J44.9 Chronic obstructive pulmonary disease, unspecified; F32.9 Major depressive disorder, single episode, unspecified; F17.200 Nicotine dependence, unspecified, uncomplicated; Z79.899 Other long term (current) drug therapy; Z85.46 Personal history of malignant neoplasm of prostate
CPT/HCPCS: 65426; 88304; J2704; 88305

== ENCOUNTER 2018-09-25 07:42 | Day surgery (SDC) | payer OTHER ==
--- OUTSIDE RECORDS SUMMARY | 2018-09-25 07:45 | XMS REPORT ---
:1945 [facility] Address [address] [place] [address] Dr. Regalado [address] [place] [address] Care Team Providers Name Role Phone Unavailable Unavailable Unavailable Problems This patient has no known problems. Allergies, Adverse Reactions, Alerts This patient has no known allergies or adverse reactions. Medications This patient has no known medications.
[2018-09-25] MEDS ORDERED: BALANCED SALT IRRIG PLAIN 500 ML BTL IRR ONE (08:14)
[2018-09-25] MEDS ORDERED: NS 0.9% VIAL 10 ML ONE (08:14)
[2018-09-25] MEDS ORDERED: DUOVISC 1 KIT OPTH ONE (08:14)
[2018-09-25] MEDS ORDERED: EPINEPHRINE/PF 1 MG/ML AMP ONE ×2 (08:14→11:20)
[2018-09-25] MEDS ORDERED: BSS OPTHALMIC SOL 15 ML BOT OPTH ONE (09:06)
[2018-09-25] MEDS ORDERED: CYCLOPENTOLATE 1% OPTH 2 ML OPTH ONE ×3 (09:36→09:48)
[2018-09-25] MEDS ORDERED: PHENYLEPHRINE 10% OPTH 5ML OPTH ONE ×3 (09:36→09:48)
[2018-09-25] MEDS ORDERED: PHENYLEPHRINE 10% OPTH 5ML ONE (09:49)
[2018-09-25] MEDS ORDERED: NA CHLORIDE 0.9% 500 ML ONE (09:49)
[2018-09-25] MEDS ORDERED: BUPIVACAINE 0.25% PF 10 ML VIAL ONE (09:49)
[2018-09-25] MEDS ORDERED: CYCLOPENTOLATE 1% OPTH 2 ML ONE (09:49)
[2018-09-25] MEDS ORDERED: LIDOCAINE HCL/PF 3.5% OPTH GEL OPTH ONE (09:49)
[2018-09-25] MEDS ORDERED: LIDOCAINE HCL/PF 3.5% OPTH GEL ONE (09:49)
[2018-09-25] MEDS ORDERED: LIDOCAINE 2% MPF 5 ML VIAL ONE (09:49)
[2018-09-25] MEDS ORDERED: TETRACAINE HCL 0.5% 4ML OPTH ONE (09:50)
[2018-09-25] MEDS ORDERED: MIDAZOLAM HCL 2 MG/2 ML INJ ONE (10:31)
[2018-09-25] MEDS ORDERED: FENTANYL CITR 100 MCG/2 ML ONE (10:31)
[2018-09-25] MEDS: LIDOCAINE 1% MPF 2 ML AMPULE ONE ×3 (10:45→10:52)
[2018-09-25] MEDS: MOXIFLOXACIN HCL 10 DROPS/ML **OR USE OPTH ONE ×2 (10:54→11:08)
--- NOTE | 2018-09-25 11:18 | P.BOP ---
Preoperative diagnosis: Nuclear sclerotic and cortical cataract OS Postoperative diagnosis: Same Primary procedure: Phacoemulsification with IOL OS Estimated blood loss: None Anesthesia: Local (Topical with anesthesia for cataract surgery) Complications: None Implants: [id number] +21.0 Transferred to: Other (Day surgery) Condition: Good
[2018-09-25 11:25] VITALS: BP 125/57; TEMP 97.6; O2SAT 100
--- NOTE | 2018-09-25 22:12 | OP ---
Surgeon: Isamar Martinez MD Anesthesiologist: Eri Ashford CRNA and Lalo Gusman MD Preoperative Diagnosis: Nuclear sclerotic cataract, and cortical cataract left eye. Operation Performed: Phacoemulsification with intraocular lens implant, left eye. Anesthesia: Per cataract surgery. Complications: None. Description Of Procedure: In the operating room the patient was prepped and draped in the usual sterile fashion for ophthalmic surgery. A lid speculum was placed in the OS. Two paracentesis sites were made superiorly and inferiorly in the limbal cornea. Viscoat was placed in the anterior chamber and a crescent blade was used to make a corneal groove and tunnel, and a keratome was used to enter the anterior chamber. Provisc was placed in the anterior chamber and a 360 degree capsulotomy was performed with a cystitome. The lens was hydrodissected with BSS and rotated freely. The lens was removed with a stop and chop technique. 5.05 phaco CDE was used to remove the lens. Residual cortex was removed with the irrigation and aspiration. Provisc was placed in the capsular bag. A ZCB00 +21.0 lens was placed in the capsular bag without complications. Irrigation and aspiration was used to remove residual viscoelastic. The paracentesis sites were hydrated with BSS. The wound and paracentesis sites were inspected and found to be watertight. Vigamox 0.07 cc was placed intracamerally at the end of the procedure. The eye was irrigated with balanced salt solution. The eye was patched with a soft cotton patch and [place] metal shield. The patient was returned to day surgery in good condition. Comments: Akten was placed in the eye in day surgery and irrigated out of the eye with BSS in the OR. Preservative free 1% lidocaine was placed in the anterior chamber prior to Viscoat. Also 1:5000 epinephrine was placed in the eye during phacoemulsification due to floppy iris. Discharge Instructions: Mr. Conti is discharged to home in good condition and is to follow up with Dr. Martinez in the morning. STEFAN/TOMMY Voice ID: [id number] Report ID: [id number] NIKKI
== END 2018-09-25 11:35 | disposition home or self-care (01) ==
LOC: OR 07:42
PROVIDERS: ATTEND Ophthalmology Retina Specialist
PROC: 08RK3JZ Replacement of Left Lens with Synthetic Substitute, Percutaneous Approach (ICD-10-PCS; principal; 2018-09-25 09:40)
DX: H25.12 Age-related nuclear cataract, left eye (principal); H25.012 Cortical age-related cataract, left eye; H25.042 Posterior subcapsular polar age-related cataract, left eye; E78.00 Pure hypercholesterolemia, unspecified; F32.9 Major depressive disorder, single episode, unspecified; I25.2 Old myocardial infarction; J44.9 Chronic obstructive pulmonary disease, unspecified; F17.200 Nicotine dependence, unspecified, uncomplicated; Z79.899 Other long term (current) drug therapy; Z85.46 Personal history of malignant neoplasm of prostate
CPT/HCPCS: 66984; J0171 ×2; J2250; J2001; J3010

== ENCOUNTER 2019-05-07 12:04 | Emergency (ER) | payer OTHER ==
--- OUTSIDE RECORDS SUMMARY | 2019-05-07 12:09 | XMS REPORT | Summary of Care ---
:1945 Author Organization [address] [address] Care Team Providers Name Role Phone Nestor Gooden Primary Care Provider Reason for Visit Reason Comments Refill Request Encounter Details Date Type Department Care Team Description 04/08/2019 Refill [facility] Guillermo Evans MD Refill Request Neurology-[address] [place] [phone] [address] [address] [place] [address] [phone] Allergies No Known Allergiesdocumented as of this encounter (statuses as of 04/12/2019) Medications Medication Sig Dispensed Refills Start Date End Date Status fluticasone 50 USE 1 SPRAY IN 1 09/08/2017 Active mcg/actuation EACH NOSTRIL nasal spray EVERY DAY traZODONE 50 mg TAKE ONE 2 09/06/2017 Active tablet TABLET BY MOUTH AT BEDTIME FOR INSOMNIA ANORO ELLIPTA TAKE 1 PUFF BY 3 08/27/2017 Active 62.5-25 MOUTH EVERY mcg/actuation DAY inhalation disk rOPINIRole 4 mg Take 4 mg by 0 Active tablet mouth at bedtime. DULoxetine Take 60 mg by 0 Active (CYMBALTA) 60 mg mouth daily. capsule GABAPENTIN 300 mg TAKE 1 CAPSULE 90 capsule 1 03/12/2019 Active capsule BY MOUTH THREE TIMES A DAY ZONISAMIDE 100 mg TAKE 1 CAPSULE 180 capsule 1 04/12/2019 Active capsuleIndication BY MOUTH TWICE s: Partial A DAY symptomatic epilepsy with complex partial seizures, not intractable, without status epilepticus zonisamide 100 mg Take 2 120 capsule 3 01/12/2019 04/12/2019 Discontinued capsuleIndication capsules by s: Partial mouth 2 (two) symptomatic times daily. epilepsy with complex partial seizures, not intractable, without status epilepticus documented as of this encounter (statuses as of 04/12/2019) Active Problems No known active problemsdocumented as of this encounter (statuses as of 2019) Social History Tobacco Use Types Packs/Day Years Used Date Never Smoker Smokeless Tobacco: Never Used Alcohol Use Drinks/Week oz/Week Comments No Sex Assigned at Date Recorded Not on file Job Start Date Occupation Industry Not on file Not on file Not on file Travel History Travel Start Travel End No recent travel history available. documented as of this encounter Last Filed Vital Signs Not on filedocumented in this encounter Plan of Treatment Date Type Specialty Care Team Description 08/20/2019 Office Visit Neurology Guillermo Evans MD [address] [place] [phone] Health Maintenance Due Date Last Done Comments HEPATITIS C (HCV) SCREEN 1945 DTaP,Tdap,and Td Vaccines (1 - Tdap) 1956 COLONOSCOPY 1997 Zoster Recombinant Vaccine (SHINGRIX) (1 of 2) 1997 Medicare Wellness Visit 2012 PNEUMOCOCCAL VACCINES 65+ (1 of 2 - PCV13) 2012 INFLUENZA VACCINE (#1) 2018 documented as of this encounter Results Not on filedocumented in this encounter Visit Diagnoses Diagnosis Partial symptomatic epilepsy with complex partial seizures, not intractable, without status epilepticus documented in this encounter Insurance Payer Benefit Plan / Subscriber ID Effective Dates Phone Address Type Group HUMANA - HUMANA [id number] 2017-Presen Medicare Adv MANAGED MEDICARE ERS t PPO MEDICARE documented as of this encounter
--- OUTSIDE RECORDS SUMMARY | 2019-05-07 12:09 | XMS REPORT | Summary of Care ---
:1945 Author Organization [address] [address] Care Team Providers Name Role Phone Nestor Gooden Primary Care Provider Reason for Visit Reason Comments Refill Request Encounter Details Date Type Department Care Team Description 05/02/2019 Refill [facility] Guillermo Evans MD Refill Request Neurology-[address] [place] [phone] [address] [address] [place] [address] [phone] Allergies No Known Allergiesdocumented as of this encounter (statuses as of 05/02/2019) Medications Medication Sig Dispensed Refills Start Date [...] Active (CYMBALTA) 60 mg mouth daily. capsule ZONISAMIDE 100 mg TAKE 1 CAPSULE 180 capsule 1 04/12/2019 Active capsuleIndication BY MOUTH TWICE s: Partial A DAY symptomatic epilepsy with complex partial seizures, not intractable, without status epilepticus GABAPENTIN 300 mg TAKE 1 CAPSULE 270 capsule 1 05/02/2019 Active capsule BY MOUTH THREE TIMES A DAY GABAPENTIN 300 mg TAKE 1 CAPSULE 270 capsule 1 04/12/2019 05/02/2019 Discontinued capsule BY MOUTH THREE TIMES A DAY documented as of this encounter (statuses as of 05/02/2019) Active Problems No known active problemsdocumented as [...] 08/20/2019 Office Visit Neurology Guillermo Evans MD [address] [place] [phone] Health Maintenance Due Date Last Done Comments HEPATITIS C (HCV) SCREEN 1945 DTaP,Tdap,and Td Vaccines (1 - Tdap) 1958 COLONOSCOPY 1997 Zoster Recombinant Vaccine (SHINGRIX) (1 of 2) 1997 Medicare Wellness Visit 2012 PNEUMOCOCCAL VACCINES 65+ (1 of 2 - PCV13) 2012 INFLUENZA VACCINE (#1) 2018 documented as of this encounter Results Not on filedocumented in this encounter Insurance Payer Benefit Plan / Subscriber ID Effective Dates Phone Address Type Group HUMANA - HUMANA [id number] 2017-Presen Medicare Adv MANAGED MEDICARE ERS t PPO MEDICARE documented as of this encounter
--- OUTSIDE RECORDS SUMMARY | 2019-05-07 12:09 | XMS REPORT | Summary of Care ---
:1945 Author Organization [address] [address] Care Team Providers Name Role Phone Nestor Gooden Primary Care Provider Reason for Visit Reason Comments Refill Request Encounter Details Date Type Department Care Team Description 04/13/2019 Refill [facility] Guillermo Evans MD Refill Request Neurology-[address] [place] [phone] [address] [address] [place] [address] [phone] Allergies No Known Allergiesdocumented as of this encounter (statuses as of 04/13/2019) Medications Medication Sig Dispensed Refills Start Date End Date Status fluticasone 50 USE 1 SPRAY IN 1 09/08/2017 Active mcg/actuation nasal EACH NOSTRIL spray EVERY DAY traZODONE 50 mg TAKE ONE TABLET 2 09/06/2017 Active tablet BY MOUTH AT BEDTIME FOR INSOMNIA ANORO ELLIPTA 62.5-25 TAKE 1 PUFF BY 3 08/27/2017 Active mcg/actuation MOUTH EVERY DAY inhalation disk rOPINIRole 4 mg Take 4 mg by 0 Active tablet mouth at bedtime. DULoxetine (CYMBALTA) Take 60 mg by 0 Active 60 mg capsule mouth daily. GABAPENTIN 300 mg TAKE 1 CAPSULE BY 270 capsule 1 04/12/2019 Active capsule MOUTH THREE TIMES A DAY ZONISAMIDE 100 mg TAKE 1 CAPSULE BY 180 capsule 1 04/12/2019 Active capsuleIndications: MOUTH TWICE A DAY Partial symptomatic epilepsy with complex partial seizures, not intractable, without status epilepticus documented as of this encounter (statuses as of 04/13/2019) Active Problems No known active problemsdocumented as [...] 08/20/2019 Office Visit Neurology Guillermo Evans MD [address] [place] [phone] Health Maintenance Due Date Last Done [...] Phone Address Type Group HUMANA - HUMANA [id number] 2017-Presen Medicare Adv MANAGED MEDICARE ERS t O MEDICARE documented as of this encounter
--- OUTSIDE RECORDS SUMMARY | 2019-05-07 12:09 | XMS REPORT | Summary of Care ---
:1945 Author Organization [address] [address] Care Team Providers Name Role Phone Nestor Gooden Primary Care Provider Reason for Visit Reason Comments Refill Request Encounter Details Date Type Department Care Team Description 04/05/2019 Refill [facility] Guillermo Evans MD Refill Request Neurology-[address] [place] [phone] [address] [address] [place] [address] [phone] Allergies No Known Allergiesdocumented as of this [...] capsule GABAPENTIN 300 mg TAKE 1 CAPSULE 270 capsule 1 04/12/2019 Active capsule BY MOUTH THREE TIMES A DAY GABAPENTIN 300 mg TAKE 1 CAPSULE 90 capsule 1 03/12/2019 04/12/2019 Discontinued capsule BY MOUTH THREE TIMES A [...] 08/20/2019 Office Visit Neurology Guillermo Evans MD [address] [place] [phone] Health Maintenance Due Date Last Done [...] Phone Address Type Group HUMANA - HUMANA [id number] 2017-Presen Medicare Adv MANAGED MEDICARE ERS t PPO MEDICARE documented as of this encounter
--- OUTSIDE RECORDS SUMMARY | 2019-05-07 12:09 | XMS REPORT ---
:1945 [facility] Address [address] [place] [address] Dr. Regalado [address] [place] [address] Care Team Providers Name Role Phone Unavailable Unavailable Unavailable Problems This patient has no known problems. Allergies, Adverse Reactions, Alerts This patient has no known allergies or adverse reactions. Medications This patient has no known medications.
--- NOTE | 2019-05-07 12:46 | RAD REPORT ---
EXAM DESCRIPTION: CT - Head Brain Wo Cont - 05/07/2019 12:37 pm CLINICAL HISTORY: DIZZINESS Headache, drowsiness COMPARISON: Head Brain Wo Cont dated 06/16/2017 TECHNIQUE: All CT scans are performed using dose optimization technique as appropriate and may inclu de automated exposure control or mA/KV adjustment according to patient size. FINDINGS: No intracranial hemorrhage, hydrocephalus or extra-axial fluid collection.Mild generalized brain atrophy.No areas of brain edema or evidence of midline shift. The paranasal sinuses and mastoids are clear. The calvarium is intact. IMPRESSION: No acute intracranial abnormality.
[2019-05-07 13:06] LABS: Absolute Lymphocytes (CBC) 1.5 K/uL (0.7-4.9); Hematocrit 47.9 % (39.6-49.0); Lymphocytes % 14.3 % (15.3-44.8); MPV 7.8 fL (7.6-11.3); RBC Red Blood Cell Count 5.19 M/uL (4.33-5.43)
[2019-05-07 13:10] LABS: Protime INR 0.99
[2019-05-07 13:33] LABS: ALT/SGPT 23 U/L (12-78); AST/SGOT 26 U/L (15-37); Albumin 3.8 g/dL (3.4-5.0); Alkaline Phosphatase 121 U/L (45-117); BUN Blood Urea Nitrogen 17 mg/dL (7-18); Bicarbonate 27 mmol/L (21-32); Bilirubin Direct 0.1 mg/dL (0-0.2); Bilirubin Total 0.4 mg/dL (0.2-1.0); CKMB Creatine Kinase MB 2.6 ng/mL (0.3-3.6); Creatine Phosphokinase 178 U/L (39-308); Glucose Level 87 mg/dL (74-106); Lipase 108 U/L (73-393); Magnesium 2.2 mg/dL (1.8-2.4); Potassium 4.1 mmol/L (3.5-5.1); Protein, Total 8.1 g/dL (6.4-8.2); Sodium Level 141 mmol/L (136-145); Troponin (Emerg Dept Use Only) < 0.02 ng/mL (0.0-0.045)
--- NOTE | 2019-05-07 14:46 | ER ---
Nurse's Notes [facility] Name: Vijay Conti Age: 74 yrs Sex: Male : 1945 Arrival Date: 05/07/2019 Time: 12:18 Bed 23 Private MD: Diagnosis: Dizziness and giddiness;Weakness Presentation: 05/06 11:54 Chief complaint: Patient states: "My called the ambulance because I was having a vc stroke. I am dizzy, with a headache, and have had cotton mouth since about an hour ago." EMS states: "We were called for possible stroke but when we arrived he had no deficits or stroke symptoms.". 11:54 Method Of Arrival: EMS: [facility] vc 11:54 Coronavirus screen: The patient has NOT traveled to [place] in the past 14 days. vc Coronavirus screen: The patient has NOT traveled to [place] in the past 14 days. Proceed with normal triage procedures. Ebola Screen: No symptoms or risks identified at this time. Initial Sepsis Screen: Does the patient meet any 2 criteria? RR > 20 per min. No. Patient's initial sepsis screen is negative. Does the patient have a suspected source of infection? No. Patient's initial sepsis screen is negative. Risk Assessment: Do you want to hurt yourself or someone else? Patient reports no desire to harm self or others. 11:54 Acuity: MARY ALICE 3 vc 12:15 Onset of symptoms was May 07, 2019. vc Triage Assessment: 12:15 General: Appears in no apparent distress. comfortable, Behavior is calm, cooperative, vc appropriate for age. Pain: Denies pain. Historical: - Allergies: 12:00 Iodine; vc 12:00 Dexilant; vc - Home Meds: 12:00 pantoprazole 40 mg Oral TbEC 1 tab once daily [Active]; Cymbalta 60 mg Oral cpDR 1 cap vc once daily [Active]; multivitamin oral [Active]; VIT C 500 mg [Active]; trazodone 50 mg Oral tab [Active]; gabapentin 300 mg oral cap 1 cap 3 times per day [Active]; fluticasone 50 mcg/actuation nasal spsn 1 spray 2 times per day [Active]; aspirin 81 mg Oral chew 1 tab once daily [Active]; Iron CR Oral [Active]; zonisamide 100 mg oral cap [Active]; - PMHx: 12:00 Diabetes - IDDM; gastric bypass; Hypertension; Hyperlipidemia; PROSTATE CA; Sleep vc Apnea; Umbilical hernia; Myocardial infarction; - PSHx: 12:00 Heart stents; vc - Immunization history:: Adult Immunizations up to date. - Social history:: Smoking status: Patient reports the use of cigarette tobacco products, smokes two packs cigarettes per day. Screenin:15 Abuse screen: Denies threats or abuse. Nutritional screening: No deficits noted. vc Tuberculosis screening: No symptoms or risk factors identified. Fall Risk None identified. Vital Signs: 11:54 BP 138 / 66; Pulse 75; Resp 22; Temp 98.5; Pulse Ox 99% on R/A; Weight 72.57 kg; Height vc 5 ft. 7 in. (170.18 cm); Pain 0/10; 12:15 BP 138 / 66; Pulse 80; Resp 22; Temp 98.5; Pulse Ox 99% on R/A; vc 14:15 BP 143 / 70; Pulse 69; Resp 25; Pulse Ox 97% on R/A; vc 15:00 BP 145 / 71; Pulse 73; Resp 21; Pulse Ox 96% on R/A; vc 11:54 Body Mass Index 25.06 (72.57 kg, 170.18 cm) vc ED Course: 12:15 Arm band placed on. vc 12:15 Patient has correct armband on for positive identification. Placed in gown. Bed in low vc position. Call light in reach. Side rails up X 1. cafeteria monitor on. Pulse ox on. NIBP on. 12:18 Patient arrived in ED. vc 12:18 George Ramirez MD is Attending Physician. tw4 12:24 Triage completed. vc 12:32 Ninfa Owens, RN is Primary Nurse. vc 12:38 CT Head Brain wo Cont In Process Unspecified. EDMS 13:47 EKG done, by lab technologist. reviewed by George Ramirez MD. at1 15:17 Urine Dipstick--Ancillary (enter results) Sent. vc 15:17 No provider procedures requiring assistance completed. IV discontinued, intact, vc bleeding controlled, No redness/swelling at site. Pressure dressing applied. Administered Medications: No medications were administered Outcome: 14:46 Discharge ordered by . tw4 15:17 Discharged to home ambulatory. vc 15:17 Condition: good 15:17 Discharge instructions given to patient, significant other, Instructed on discharge instructions, follow up and referral plans. medication usage, Demonstrated understanding of instructions, follow-up care, medications, Prescriptions given X 1. 15:19 Patient left the ED. vc Signatures: Dispatcher [employer] EDMS Heide García, broadcast news producer EKG Tat1 George Ramirez MD MD tw4 Ninfa Owens RN RN vc
--- NOTE | 2019-05-07 14:46 | EDPHYS ---
Physician Documentation [facility] Name: Vijay Conti Age: 74 yrs Sex: Male : 1945 Arrival Date: 05/07/2019 Time: 12:18 Bed 23 Private MD: ED Physician George Ramirez HPI: 05/06 20:58 This 74 yrs old Male presents to ER via EMS with complaints of General tw4 Weakness. 20:58 The patient presents with generalized weakness, lightheadedness. Onset: The tw4 symptoms/episode began/occurred today. Context: occurred at home. Modifying factors: The symptoms are alleviated by nothing, the symptoms are aggravated by nothing. Associated signs and symptoms: The patient has no apparent associated signs or symptoms. Severity of symptoms: At their worst the symptoms were moderate in the emergency department the symptoms are unchanged. Patient's baseline: Neuro: alert and fully oriented, Motor: no deficits, Ambulation: walks without assistance. The patient has not experienced similar symptoms in the past. Historical: - Allergies: 12:00 Iodine; vc 12:00 Dexilant; vc - Home Meds: 12:00 pantoprazole 40 mg Oral TbEC 1 tab once daily [Active]; Cymbalta 60 mg Oral cpDR 1 cap vc once daily [Active]; multivitamin oral [Active]; VIT C 500 mg [Active]; trazodone 50 mg Oral tab [Active]; gabapentin 300 mg oral cap 1 cap 3 times per day [Active]; fluticasone 50 mcg/actuation nasal spsn 1 spray 2 times per day [Active]; aspirin 81 mg Oral chew 1 tab once daily [Active]; Iron CR Oral [Active]; zonisamide 100 mg oral cap [Active]; - PMHx: 12:00 Diabetes - IDDM; gastric bypass; Hypertension; Hyperlipidemia; PROSTATE CA; Sleep vc Apnea; Umbilical hernia; Myocardial infarction; - PSHx: 12:00 Heart stents; vc - Immunization history:: Adult Immunizations up to date. - Social history:: Smoking status: Patient reports the use of cigarette tobacco products, smokes two packs cigarettes per day. ROS: 20:58 Constitutional: Negative for fever, chills, and weight loss, Eyes: Negative for injury, tw4 pain, redness, and discharge, Cardiovascular: Negative for chest pain, palpitations, and edema, Respiratory: Negative for shortness of breath, cough, wheezing, and pleuritic chest pain, Abdomen/GI: Negative for abdominal pain, nausea, vomiting, diarrhea, and constipation, Back: Negative for injury and pain, MS/Extremity: Negative for injury and deformity, Skin: Negative for injury, rash, and discoloration. 20:58 Neuro: Positive for dizziness, Negative for altered mental status, gait disturbance, headache, hearing loss, loss of consciousness, numbness, seizure activity, speech changes, syncope, near syncope, tingling, tinnitus, tremor. Exam: 20:58 Constitutional: This is a well developed, well nourished patient who is awake, alert, tw4 and in no acute distress. Head/Face: Normocephalic, atraumatic. Chest/axilla: Normal chest wall appearance and motion. Nontender with no deformity. No lesions are appreciated. Cardiovascular: Regular rate and rhythm with a normal S1 and S2. No gallops, murmurs, or rubs. Normal PMI, no JVD. No pulse deficits. Respiratory: Lungs have equal breath sounds bilaterally, clear to auscultation and percussion. No rales, rhonchi or wheezes noted. No increased work of breathing, no retractions or nasal flaring. Abdomen/GI: Soft, non-tender, with normal bowel sounds. No distension or tympany. No guarding or rebound. No evidence of tenderness throughout. Back: No spinal tenderness. No costovertebral tenderness. Full range of motion. MS/ Extremity: Pulses equal, no cyanosis. Neurovascular intact. Full, normal range of motion. Neuro: Awake and alert, GCS 15, oriented to person, place, time, and situation. Cranial nerves II-XII grossly intact. Motor strength 5/5 in all extremities. Sensory grossly intact. Cerebellar exam normal. Normal gait. Vital Signs: 11:54 BP 138 / 66; Pulse 75; Resp 22; Temp 98.5; Pulse Ox 99% on R/A; Weight 72.57 kg; Height vc 5 ft. 7 in. (170.18 cm); Pain 0/10; 12:15 BP 138 / 66; Pulse 80; Resp 22; Temp 98.5; Pulse Ox 99% on R/A; vc 14:15 BP 143 / 70; Pulse 69; Resp 25; Pulse Ox 97% on R/A; vc 15:00 BP 145 / 71; Pulse 73; Resp 21; Pulse Ox 96% on R/A; vc 11:54 Body Mass Index 25.06 (72.57 kg, 170.18 cm) vc MDM: 12:19 Patient medically screened. tw4 21:00 Differential diagnosis: cardiac arrhythmia, CVA, TIA. Data reviewed: vital signs, tw4 nurses notes. Data reviewed: radiologic studies, CT scan, plain films. Data interpreted: Pulse oximetry: Interpretation: normal. Test interpretation: by ED physician or midlevel provider: ECG, plain radiologic studies. Counseling: I had a detailed discussion with the patient and/or guardian regarding: the historical points, exam findings, and any diagnostic results supporting the discharge/admit diagnosis, lab results, radiology results. Special discussion: I discussed with the patient/guardian in detail that at this point there is no indication for admission to the hospital. It is understood, however, that if the symptoms persist or worsen the patient needs to return immediately for re-evaluation. 05/06 12:19 Order name: Basic Metabolic Panel; Complete Time: 14:28 05/06 14:28 Interpretation: Normal except: CL 108; GFR 61. 05/06 12:19 Order name: CBC with Diff; Complete Time: 14:29 05/06 14:29 Interpretation: Normal except: MCV 92.3; MCH 30.8. 05/06 12:19 Order name: Ckmb; Complete Time: 14:28 05/06 14:28 Interpretation: CKMB 2.6. 05/06 12:19 Order name: CPK; Complete Time: 14:28 05/06 14:28 Interpretation: CPK 178. 05/06 12:19 Order name: Hepatic Function; Complete Time: 14:28 05/06 14:28 Interpretation: Normal except: ALK 121; GLOB 4.3; A/G 0.9. 05/06 12:19 Order name: Lipase; Complete Time: 14:28 05/06 14:29 Interpretation: Within normal limits: LIP 108. 05/06 12:19 Order name: CT Head Brain wo Cont; Complete Time: 14:28 05/06 14:28 Interpretation: No acute disease. 05/06 12:19 Order name: Magnesium; Complete Time: 14:28 05/06 14:29 Interpretation: Within normal limits: MG 2.2. 05/06 12:19 Order name: Protime (+inr); Complete Time: 14:28 05/06 14:29 Interpretation: Within normal limits: PT 11.7. 05/06 12:19 Order name: Ptt, Activated; Complete Time: 14:28 05/06 14:29 Interpretation: Within normal limits: PTT 34.6. 05/06 12:19 Order name: Troponin (emerg Dept Use Only); Complete Time: 14:28 05/06 14:29 Interpretation: Within normal limits: TROPED < 0.02. 05/06 12:19 Order name: EKG; Complete Time: 12:21 05/06 12:19 Order name: Cardiac monitoring; Complete Time: 12:40 05/06 14:47 Order name: Urine Dipstick--Ancillary (enter results) bd 05/06 12:19 Order name: EKG - Nurse/Tech; Complete Time: 13:51 tw4 05/06 12:19 Order name: IV Saline Lock; Complete Time: 13:51 4 05/06 12:19 Order name: Labs collected and sent; Complete Time: 13:51 05/06 12:19 Order name: NPO; Complete Time: 13:51 4 05/06 12:19 Order name: O2 Per Protocol; Complete Time: 13:51 05/06 12:19 Order name: O2 Sat Monitoring; Complete Time: 13:52 05/06 12:19 Order name: Urine Dipstick-Ancillary (obtain specimen); Complete Time: 15:17 tw4 EC:58 Rate is 64 beats/min. Rhythm is regular. QRS [place] is Normal. CO interval is normal. QRS tw4 interval is normal. QT interval is normal. No Q waves. T waves are Inverted in lead V6. T waves are Flattened in leads III, aVL. No ST changes noted. Clinical impression: Abnormal EKG without significant change. Interpreted by me. Reviewed by me. Administered Medications: No medications were administered Disposition: 05/07/19 14:46 Discharged to Home. Impression: Dizziness and giddiness, Weakness. - Condition is Stable. - Discharge Instructions: Dizziness, Weakness, Vertigo, [id number], Weakness, [id number]. - Prescriptions for Meclizine 25 mg Oral Tablet - take 1 tablet by ORAL route every 8 hours As needed; 30 tablet. - Medication Reconciliation Form, Thank You Letter, Antibiotic Education, Prescription Opioid Use form. - Follow up: Private Physician; When: Upon discharge from the Emergency Department; Reason: Wound Recheck, Recheck today's complaints, Continuance of care. - Problem is new. - Symptoms have improved. Signatures: Dispatcher [employer] EDGeorge Katz MD MD tw4 Ninfa Owens RN RN vc Corrections: (The following items were deleted from the chart) 15:19 14:46 05/07/2019 14:46 Discharged to Home. Impression: Dizziness and giddiness; vc Weakness. Condition is Stable. Forms are Medication Reconciliation Form, Thank You Letter, Antibiotic Education, Prescription Opioid Use. Follow up: Private Physician; When: Upon discharge from the Emergency Department; Reason: Wound Recheck, Recheck today's complaints, Continuance of care. Problem is new. Symptoms have improved. tw4
[2019-05-07 15:26] LABS: Urine Blood NEGATIVE (NEG); Urine Glucose NEGATIVE (NEG); Urine Protein NEGATIVE (NEG); Urine Specific Gravity 1.025 (1.005-1.030)
[2019-05-07 15:28] VITALS: TEMP 98.5
[2019-05-07 15:31] VITALS: BP 145/71; O2SAT 96
--- NOTE | 2019-05-07 15:32 | EKG ---
Test Date: 2019-05-07 Test Time: 13:23:55 Larry Car Operator: OFELIA MEASUREMENT RESULTS: Intervals: Rate: 64 MN: 156 QRSD: 98 QT: 392 QTc: 404 [place]: P: 69 MN: 156 QRS: 26 T: 46 INTERPRETIVE STATEMENTS: Normal sinus rhythm Nonspecific ST and T wave abnormality Abnormal ECG Compared to ECG 01/09/2019 15:03:06 ST (T wave) deviation now present Electronically Signed On 05-07-19 15:31:32 [employer] SERVICES LIBRARIAN by Satya Anderson
== END 2019-05-07 15:19 | disposition home or self-care (01) ==
LOC: ER 12:04
DX: R42 Dizziness and giddiness (principal); Z91.09 Other allergy status, other than to drugs and biological substances; I10 Essential (primary) hypertension; E11.9 Type 2 diabetes mellitus without complications; Z79.4 Long term (current) use of insulin; Z85.46 Personal history of malignant neoplasm of prostate; E78.5 Hyperlipidemia, unspecified; F17.210 Nicotine dependence, cigarettes, uncomplicated
CPT/HCPCS: 36415; 70450; 80048; 80076; 81003; 82550; 82553; 83690; 83735; 84484; 85025; 85610; 85730; 93005; 99284

== ENCOUNTER 2019-05-28 08:57 | Emergency (ER) | payer OTHER ==
--- OUTSIDE RECORDS SUMMARY | 2019-05-28 08:59 | XMS REPORT ---
:1945 [facility] Address [address] [place] [address] [address] [place] [address] Care Team Providers Name Role Phone Unavailable Unavailable Unavailable Problems This patient has no known problems. Allergies, Adverse Reactions, Alerts This patient has no known allergies or adverse reactions. Medications This patient has no known medications.
--- NOTE | 2019-05-28 10:11 | RAD REPORT ---
EXAM DESCRIPTION: Nash Single View05/28/2019 9:51 am CLINICAL HISTORY: Cough COMPARISON: 2017 FINDINGS: The lungs are mildly hyperaerated. The lungs appear clear of acute infiltrate. The heart is normal size IMPRESSION: No acute abnormalities displayed
--- NOTE | 2019-05-28 11:04 | ER ---
Nurse's Notes [facility] Name: Vijay Conti Age: 74 yrs Sex: Male : 1945 Arrival Date: 05/28/2019 Time: 09:00 Bed 20 Private MD: Nestor Gooden V Diagnosis: Bronchitis, not specified as acute or chronic;Pneumonia Presentation: 05/27 09:10 Chief complaint: Patient states: cough and sinus drainage x 3-4 weeks. Pt was sent by Dr. Gooden to test for Coronavirus. Coronavirus screen: Patient reports a subjective fever or greater than 100.4F, or cough, or shortness of breath, or difficulty breathing. Patient denies travel on a cruise ship or to a country the [facility] currently lists as an affected area. Patient denies contact with known and/or suspected case of COVID-19. Ebola Screen: Patient denies exposure to infectious person. Patient denies travel to an Ebola-affected area in the 21 days before illness onset. Resp Distress? No respiratory distress is noted at this time. Initial Sepsis Screen: Does the patient meet any 2 criteria? No. Patient's initial sepsis screen is negative. Does the patient have a suspected source of infection? No. Patient's initial sepsis screen is negative. Risk Assessment: Do you want to hurt yourself or someone else? Patient reports no desire to harm self or others. 09:10 Method Of Arrival: Ambulatory 09:10 Acuity: MARY ALICE 4 ss Historical: - Allergies: 09:12 Dexilant; ss 09:12 Iodine; ss - PMHx: 09:18 Diabetes - IDDM; gastric bypass; Hyperlipidemia; Hypertension; Myocardial infarction; aa5 PROSTATE CA; Sleep Apnea; Umbilical hernia; COPD; - PSHx: 09:18 Heart stents; aa5 - Immunization history:: Adult Immunizations up to date. - Social history:: Smoking status: Patient reports the use of cigarette tobacco products, smokes one-half pack cigarettes per day. - Family history:: not pertinent. - Hospitalizations: : No recent hospitalization is reported. Screenin:12 Abuse screen: Denies threats or abuse. Nutritional screening: No deficits noted. aa5 Tuberculosis screening: No symptoms or risk factors identified. Fall Risk None identified. Assessment: 09:12 General: Appears comfortable, Behavior is calm, cooperative. Pain: Denies pain. Neuro: aa5 Level of Consciousness is awake, alert, obeys commands, Oriented to person, place, time, situation. Cardiovascular: Heart tones S1 S2 present Rhythm is regular. Respiratory: Reports shortness of breath on exertion cough that is productive, Airway is patent Respiratory effort is even, unlabored, Respiratory pattern is regular, symmetrical, Breath sounds are diminished in right middle lobe, right lower lobe, right posterior middle lobe and right posterior lower lobe. GI: No signs and/or symptoms were reported involving the gastrointestinal system. : No signs and/or symptoms were reported regarding the genitourinary system. EENT: Reports nasal congestion nasal discharge that is watery. Derm: Skin is pink, warm \T\ dry. Musculoskeletal: Range of motion: intact in all extremities. 09:15 Reassessment: Droplet precautions initiated per MD . aa5 10:40 Reassessment: PUI #[id number]. Vital Signs: 09:10 BP 145 / 72; Pulse 69; Resp 17; Temp 97.6(TE); Pulse Ox 99% on R/A; Weight 67.59 kg; ss Height 5 ft. 7 in. (170.18 cm); Pain 0/10; 10:16 BP 155 / 71; Pulse 58; Resp 16 S; Pulse Ox 100% on R/A; aa5 11:00 BP 152 / 70; Pulse 58; Resp 16 S; Pulse Ox 100% on R/A; aa5 09:10 Body Mass Index 23.34 (67.59 kg, 170.18 cm) ED Course: 09:00 Patient arrived in ED. mr 09:00 Nestor Gooden MD is Private Physician. mr 09:06 Donavon Sauer MD is Attending Physician. rn 09:10 Bronwyn Mcdaniel RN is Primary Nurse. aa5 09:12 Triage completed. ss 09:12 Arm band placed on right wrist. ss 09:12 Patient has correct armband on for positive identification. Bed in low position. Call aa5 light in reach. Side rails up X 1. Pulse ox on. NIBP on. 09:52 X-ray completed. Portable x-ray completed in exam room. Patient tolerated procedure mh1 well. 09:53 XRAY Chest (1 view) In Process Unspecified. EDMS 10:15 Flu and/or RSV swab sent to lab. COVID-19 sent to lab. aa5 11:03 Nestor Gooden MD is Referral Physician. rn 05/28 09:56 Notified pt of negative COVID-19 swab results. Advised to continue to monitor symptoms dm5 and to return to the ED if symptoms worsened. Administered Medications: No medications were administered Outcome: 05/27 11:03 Discharge ordered by . rn 11:33 Patient left the ED. aa5 Signatures: Dispatcher [employer] EDDC Sheeba Gayle, RN RN dm5 Fern Kenney Stephanie Lopez [facility] Donavon Sauer MD MD rn Calderon, Audri RN RN [email or web address] Susan Smith RN RN ss Corrections: (The following items were deleted from the chart) 10:44 09:12 Respiratory: Airway is patent Respiratory effort is even, unlabored, Respiratory aa5 pattern is regular, symmetrical, aa5
--- NOTE | 2019-05-28 11:05 | EDPHYS ---
Physician Documentation [facility] Name: Vijay Conti Age: 74 yrs Sex: Male : 1945 Arrival Date: 05/28/2019 Time: 09:00 Bed 20 Private MD: Nestor Gooden V ED Physician Donavon Sauer HPI: 05/27 09:47 This 74 yrs old Male presents to ER via Ambulatory with complaints of Cough, rn Congestion. 09:47 The patient or guardian reports cough. Onset: The symptoms/episode began/occurred 1 rn week(s) ago. Severity of symptoms: At their worst the symptoms were mild, in the emergency department the symptoms are unchanged. Modifying factors: The symptoms are alleviated by nothing, the symptoms are aggravated by nothing. Associated signs and symptoms: Pertinent negatives: chest pain, fever. The patient has experienced similar episodes in the past. Reports cough, congestion, for 1 week, smokes and states has COPD, sent by PCP today after an xray obtained last week showed pneumonia. Patient told pcp has close contact that has been tested for COVID-19 but unknown results. reports he does not feel terrible, also has runny nose. Mild sob. Reports does not feel as bad as when required admission, feels like just needs medication. 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 No known positive exposure. requests COVID-19 testing.. Historical: - Allergies: 09:12 Dexilant; ss 09:12 Iodine; ss - PMHx: 09:18 Diabetes - IDDM; gastric bypass; Hyperlipidemia; Hypertension; Myocardial infarction; aa5 PROSTATE CA; Sleep Apnea; Umbilical hernia; COPD; - PSHx: 09:18 Heart stents; aa5 - Immunization history:: Adult Immunizations up to date. - Social history:: Smoking status: Patient reports the use of cigarette tobacco products, smokes one-half pack cigarettes per day. - Family history:: not pertinent. - Hospitalizations: : No recent hospitalization is reported. ROS: 09:47 Constitutional: Negative for fever, chills, and weight loss, Eyes: Negative for injury, rn pain, redness, and discharge, ENT: + runny nose Neck: Negative for injury, pain, and swelling, Cardiovascular: Negative for chest pain, palpitations, and edema, Respiratory: + cough and mild sob. Abdomen/GI: Negative for abdominal pain, nausea, vomiting, diarrhea, and constipation, MS/Extremity: Negative for injury and deformity, Skin: Negative for injury, rash, and discoloration, Neuro: Negative for headache, weakness, numbness, tingling, and seizure. Exam: 09:47 Constitutional: This is a well developed, well nourished patient who is awake, alert, rn and in no acute distress. Ambulatory to room without dififculty or assistance. Head/Face: Normocephalic, atraumatic. Eyes: Pupils equal round and reactive to light, extra-ocular motions intact. Lids and lashes normal. Conjunctiva and sclera are non-icteric and not injected. Cornea within normal limits. Periorbital areas with no swelling, redness, or edema. Cardiovascular: Regular rate and rhythm. No pulse deficits. Respiratory: + diminished breath sounds RLL, no wheezing, no tachypnea or retractions, speaking full sentences. Skin: Warm, dry MS/ Extremity: Pulses equal, no cyanosis. Neuro: Awake and alert, GCS 15, Normal gait. Vital Signs: 09:10 BP 145 / 72; Pulse 69; Resp 17; Temp 97.6(TE); Pulse Ox 99% on R/A; Weight 67.59 kg; ss Height 5 ft. 7 in. (170.18 cm); Pain 0/10; 10:16 BP 155 / 71; Pulse 58; Resp 16 S; Pulse Ox 100% on R/A; aa5 11:00 BP 152 / 70; Pulse 58; Resp 16 S; Pulse Ox 100% on R/A; aa5 09:10 Body Mass Index 23.34 (67.59 kg, 170.18 cm) ss MDM: 09:09 Patient medically screened. rn 09:43 ED course: Contacting health department regarding testing for COVID-19.. rn 10:34 Test interpretation: by ED physician or midlevel provider: plain radiologic studies, rn CXR without acute infiltrate/pneumonia. ED course: Waiting on flu test results, if neg will prescribe abx given xray as outpt with read as pneumonia even though ours looks ok. COVID-19 testing performed. . 11:02 Differential Diagnosis: Bronchitis Influenza Upper Respiratory Infection Viral Syndrome rn Pneumonia. Data reviewed: vital signs, nurses notes, lab test result(s), radiologic studies, plain films, and as a result, I will discharge patient. Counseling: I had a detailed discussion with the patient and/or guardian regarding: the historical points, exam findings, and any diagnostic results supporting the discharge/admit diagnosis, lab results, radiology results, the need for outpatient follow up, to return to the emergency department if symptoms worsen or persist or if there are any questions or concerns that arise at home. Special discussion: I discussed with the patient/guardian in detail that at this point there is no indication for admission to the hospital. It is understood, however, that if the symptoms persist or worsen the patient needs to return immediately for re-evaluation. ED course: Recommended self quarantine and will dc home with abx for possible bronchitis/pneumonia in smoker with COPD. . 05/27 09:19 Order name: Flu; Complete Time: 11:02 rn 05/27 10:05 Order name: Misc. Lab Test aa5 05/27 09:19 Order name: XRAY Chest (1 view); Complete Time: 10:17 rn Administered Medications: No medications were administered Disposition: 05/28/19 11:03 Discharged to Home. Impression: Bronchitis, not specified as acute or chronic, Pneumonia. - Condition is Stable. - Discharge Instructions: Acute Bronchitis, Adult, Community-Acquired Pneumonia, Adult. - Prescriptions for Zithromax Z- Juan 250 mg Oral Tablet - take 1 tablet by ORAL route as directed for 5 days Day 1 - take two (2) tablets one time. Day 2, 3, 4 , 5 take one (1) tablet once daily.; 6 tablet. - Medication Reconciliation Form, Thank You Letter, Antibiotic Education, Prescription Opioid Use form. - Follow up: Nestor Gooden MD; When: As needed; Reason: Recheck today's complaints, Re-evaluation by your physician. - Problem is new. - Symptoms have improved. Signatures: Dispatcher [employer] EDMS Donavon Sauer MD MD rn Calderon, Audri, RN RN aa5 Susan Smith RN RN ss Corrections: (The following items were deleted from the chart) 11:03 11:03 05/28/2019 11:03 Discharged to Home. 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 Condition is Stable. Forms are Medication Reconciliation Form, Thank You Letter, Antibiotic Education, Prescription Opioid Use. Follow up: Nestor Gooden; When: As needed; Reason: Recheck today's complaints, Re-evaluation by your physician. Problem is new. Symptoms have improved. rn 11:33 11:03 05/28/2019 11:03 Discharged to Home. Impression: Bronchitis, not specified as aa5 acute or chronic; Pneumonia. Condition is Stable. Forms are Medication Reconciliation Form, Thank You Letter, Antibiotic Education, Prescription Opioid Use. Follow up: Nestor Gooden; When: As needed; Reason: Recheck today's complaints, Re-evaluation by your physician. Problem is new. Symptoms have improved. aiyana
[2019-05-28 11:42] VITALS: BP 145/72; TEMP 97.6; O2SAT 99
== END 2019-05-28 11:33 | disposition home or self-care (01) ==
LOC: ER 08:57
DX: J18.9 Pneumonia, unspecified organism (principal); J40 Bronchitis, not specified as acute or chronic; F17.210 Nicotine dependence, cigarettes, uncomplicated; I10 Essential (primary) hypertension; J44.9 Chronic obstructive pulmonary disease, unspecified; Z88.8 Allergy status to other drugs, medicaments and biological substances; Z95.818 Presence of other cardiac implants and grafts
CPT/HCPCS: 87804 ×2; 71045; 99283; U0001

== ENCOUNTER 2020-06-30 06:52 | Day surgery (SDC) | payer OTHER ==
--- NOTE | 2020-06-26 12:55 | RAD REPORT ---
EXAM DESCRIPTION: RAD - Chest Pa And Lat (2 Views) - 06/26/2020 12:48 pm CLINICAL HISTORY: preop Chest pain. COMPARISON: Chest Single View dated 05/28/2019; Chest Pa And Lat (2 Views) dated 02/08/2018; Chest Sin gle View dated 06/16/2017; Chest Single View dated 12/15/2015 FINDINGS: The lungs are clear. The heart is mildly enlarged in size. No displaced fractures.
[2020-06-26 14:02] LABS: Absolute Lymphocytes (CBC) 2.3 K/uL (0.7-4.9); Basophils % 0.7 % (0-1.3); Hematocrit 44.4 % (39.6-49.0); Lymphocytes % 22.7 % (15.3-44.8); MPV 8.1 fL (7.6-11.3); RBC Red Blood Cell Count 4.75 M/uL (4.33-5.43)
[2020-06-26 14:03] LABS: Protime INR 0.95
[2020-06-26 15:51] LABS: Potassium 4.9 mmol/L (3.5-5.1)
--- NOTE | 2020-06-28 08:01 | EKG ---
Test Date: 2020-06-26 Test Time: 11:51:49 Printing Press Machinist: SEGUNDO MEASUREMENT RESULTS: Intervals: Rate: 53 AL: 170 QRSD: 102 QT: 430 QTc: 403 [place]: P: 79 AL: 170 QRS: 44 T: -1 INTERPRETIVE STATEMENTS: Sinus bradycardia Otherwise normal ECG Compared to ECG 05/07/2019 13:23:55 Sinus rhythm no longer present ST (T wave) deviation no longer present Electronically Signed On 06-28-20 07:58:22 CDT by Robin James
[2020-06-30] MEDS ORDERED: LIDOCAINE 1% 20 ML MDV ONE (07:04)
[2020-06-30] MEDS ORDERED: HEPA 1000U/500MLS 1,000 UNIT/500 ML BAG IV ONE (07:04)
[2020-06-30] MEDS ORDERED: NA CHLORIDE 0.9% 500 ML ONE (07:07)
[2020-06-30] MEDS ORDERED: METHYLPREDNISOLONE 125 MG INJ ONE (07:24)
[2020-06-30] MEDS ORDERED: MIDAZOLAM HCL 2 MG/2 ML INJ ONE (07:24)
[2020-06-30] MEDS ORDERED: ATROPINE SULF 1 MG/10 ML SYR IV ONE (07:25)
[2020-06-30] MEDS ORDERED: NA CHLORIDE 0.9% 0 ML ONE (07:25)
[2020-06-30] MEDS ORDERED: FENTANYL CITR 100 MCG/2 ML ONE (07:25)
[2020-06-30] MEDS ORDERED: NITROGLYCERIN 100 MCG/ML SYR (for cath lab use only) IV ONE (07:31)
[2020-06-30] MEDS ORDERED: NITROGLYCERIN/D5W 0 MG/0 ML BTL IV ONE (07:31)
[2020-06-30 09:31] VITALS: TEMP 96.3
[2020-06-30] MEDS ORDERED: ACETAMINOPHEN 325 MG TABLET ONE (13:51)
[2020-06-30 15:20] VITALS: BP 135/58; O2SAT 96
--- NOTE | 2020-06-30 16:10 | OP ---
Date of Procedure: 06/30/2020 Surgeon: Robin James MD Tank Erector: Bhargavi Roper. Procedures: Left heart catheterization and selective coronary arteriogram. Indication: Coronary artery disease, chest pain, positive stress test. Procedure In Detail: Mr. Conti is a 75-year-old male with history of hypertension, dyslipidemia, cor onary artery disease, status post LAD stent and OM stent in the past. Had atypical chest pain, posit nahum stress test, brought to the laboratory machinist today as an outpatient, prepped and draped in routine steril e fashion. Given Versed and fentanyl for sedation. He was given 125 mg of Solu-Medrol for iodine al lergies. A 6-[place] sheath was introduced in the right common femoral artery successfully. Angiogra phy there shows severe calcification of the femoral artery with some mild stenosis in the common femo ral artery. Handheld pressure was used for hemostasis. [employer] had failed to close the groin. Ju Jump Ramp Gamesins catheter left and right were used to do the heart catheterization. He was found to have a 40% left main, 40% mid LAD, a patent LAD stent proximal, 100% OM stent and stenosis. There was a CHANDRIKA-1 flow in the OM. The RCA was 100% occluded at the ostial proximal segment with some collaterals to th e OM and to the RCA, PDA from the LAD. There were no complications. Blood Loss: 5 mL. Postoperative Diagnosis: Severe coronary artery disease. Plan: I will plan to review the film with CV Surgery in [place]. I think he would benefit from a ASHANTI ELLINGTON to the LAD and OM graft and RCA PDA graft. I will discuss that with him and the family in the melinda r future. Anesthesia: Total conscious sedation was 45 minutes. The patient will remain at bedrest for 6 hours after the procedure and he can go home after that. I will make arrangements for followup. JOSIAH/RICKL Voice ID: [id number] Report ID: [id number]
== END 2020-06-30 15:15 | disposition home or self-care (01) ==
LOC: CCL 06:52
DX: I25.10 Atherosclerotic heart disease of native coronary artery without angina pectoris (principal); I25.82 Chronic total occlusion of coronary artery; T82.855A Stenosis of coronary artery stent, initial encounter; I10 Essential (primary) hypertension; E78.5 Hyperlipidemia, unspecified; Z95.5 Presence of coronary angioplasty implant and graft; Z88.8 Allergy status to other drugs, medicaments and biological substances; Z91.041 Radiographic dye allergy status
CPT/HCPCS: 93005; 85025; 80048; 36415; 85610; 85730; 71046; 93454; U0002; C1893; J2250; J3010; J7040; J1644; J2930; J0583

== ENCOUNTER 2021-08-17 14:48 | Inpatient (IN) | payer OTHER ==
--- OUTSIDE RECORDS SUMMARY | 2021-08-17 14:56 | XMS REPORT | Continuity of Care Document ---
:1945 Author Organization [facility] t Address [facility] [address] [place] [address] Care Team Providers Name Role Phone JAMESON Primary Care Physician Unavailable ANUPAMA EVANS Attending Clinician Unavailable ANUPAMA EVANS Attending Clinician Unavailable Anupama Evans MD Attending Clinician DAVI MARQUEZ Attending Clinician Unavailable TOYIN Attending Clinician Unavailable TRISTEN LOCK Admitting Clinician Unavail able Payers Payer Name Policy Type Policy Number Effective Date Expiration Date S ource AETNA MEDICARE OUT [id number] 2021 OF NETWORK 00:00:00 [employer] MEDICARE [id number] 2018 ADV 00:00:00 Problems Condition Condition Condition Status Onset Resolution Last Treating Co mments Source Name Details Category Date Date Treatment Clinician Date No known No known Disease Unive rs active active ity of problems problems [facility] Allergies, Adverse Reactions, Alerts Allergy Allergy Status Severity Reaction(s) Onset Inactive Treating Comm ents Source Name Type Date Date Clinician Dexlanso Drug Active Unknown - 2019-0 Unive rs prazole Allergy See comments 7- it y of 00:00: [place] [facility] Povidone Drug Active Unknown - 2019-0 Unive rs -Iodine Allergy See comments 7- it y of 00:00: [address] DEXLANSO DRUG Active Unknown-Cmnt 2018-0 Un chava PRAZOLE INGREDI - ity of 00:00: [address] POVIDONE DRUG Active Unknown-Cmnt 2018-0 Un chava -IODINE INGREDI 09-22 ity of 00:00: [place] 00 [facility] DEXLANSO Allergy Active [facility] POVIDONE Allergy Active [facility] -[facility]INE [facility] NO KNOWN Allergy Active CARLITOS ALLERGDELORES S Social History Social Habit Start Date Stop Date Quantity Comments Source Exposure to Not sure [facility]-CoV-2 [facility] (event) Branch Alcohol intake 2021-06-01 2021-06-01 Current [facility] 00:00:00 00:00:00 non-drinker of [facility] alcohol Branch (finding) Tobacco use and 2017-09-12 2017-09-12 Never used Universit y of exposure 00:00:00 00:00:00 [facility] Sex Ass[birth year] Univers[facility] of 00:00:00 00:00:00 [facility] Smoking Status Start Date Stop Date Source Never smoker [facility] Medications Ordered Filled Start Stop Current Ordering Indication Dosage Frequency Signature Comments Components Source Medication Medication Date Date Medication? Clinician (SIG) Name Name rivastigmin 2021- No [id number] 1{patch Apply 1 Univers e 4.6 mg/24 06-01 } Patch to ity of hour patch 00:00: 00:00 skin [place] 00 :00 daily. Medical Apply one Branch patch to the skin daily rivastigmin 2021- No [id number] 1{patch Apply 1 Univers e 4.6 mg/24 06-01 } Patch to ity of hour patch 00:00: 00:00 skin [place] 00 :00 daily. Medical Apply one Branch patch to the skin daily rivastigmin 2021- No [id number] 1{patch Apply 1 Univers e 4.6 mg/24 05-22 } Patch to ity of hour patch 00:00: 00:00 skin [place] 00 :00 daily. Medical Apply one Branch patch to the skin daily rivastigmin 2021- No [id number] 1{patch Apply 1 Univers e 4.6 mg/24 05-22 } Patch to ity of hour patch 00:00: 00:00 skin [place] 00 :00 daily. Medical Apply one Branch patch to the skin daily gabapentin 2020-03 Yes [id number] 300mg Take 1 Univers 300 mg 2-13 capsule by ity of capsule 00:00: mouth 3 00 (three) Medical times Branch daily. zonisamide 2020-03 Yes [id number] 100mg Take 1 Univers 100 mg 2-13 capsule by ity of capsule 00:00: mouth 2 00 (two) Medical times Branch daily. gabapentin 2020-03 Yes [id number] 300mg Take 1 Univers 300 mg 2-13 capsule by ity of capsule 00:00: mouth 3 00 (three) Medical times Branch daily. zonisamide 2020-03 Yes [id number] 100mg Take 1 Univers 100 mg 2-13 capsule by ity of capsule 00:00: mouth 2 00 (two) Medical times Branch daily. fluticasone Yes 1{spray Use 1 Un chava propionate 2-08 } [place] in ity o f 50 09:56: each [place] mcg/actuati 47 nostril. Medi dinora on nasal Branch spray fluticasone Yes 1{spray Use 1 Un chava propionate 2-08 } [place] in ity o f 50 09:56: each [place] mcg/actuati 47 nostril. Medi dinora on nasal Branch spray DULoxetine Yes 60mg Take 60 mg U nivers (CYMBALTA) 2-08 by mouth ity o f 60 mg 09:50: daily. [place] capsule 59 [facility] Branch DULoxetine Yes 60mg Take 60 mg U nivers (CYMBALTA) 2-08 by mouth ity o f 60 mg 09:50: daily. [place] capsule 59 [facility] Branch ARIPiprazol 0 Yes 2mg Take 2 mg U nivers e 2 mg 1-22 by mouth ity of tablet 00:00: daily. [place] 00 [facility] Branch ARIPiprazol 0 Yes 2mg Take 2 mg U nivers e 2 mg 1-22 by mouth ity of tablet 00:00: daily. [place] [facility] TRELEGY 2019-03 Yes INHALE 1 Univer s ELLIPTA 2-18 PUFF BY ity of 100-62.5-25 00:00: MOUTH [place] mcg DsDv 00 EVERY DAY Medica l Branch TRELEGY 2019-03 Yes INHALE 1 Univer s ELLIPTA 2-18 PUFF BY ity of 100-62.5-25 00:00: MOUTH [place] mcg DsDv 00 EVERY DAY Medica l Branch pantoprazol 2019-03 Yes 40mg Take 40 mg Univers e 40 mg EC 2-17 by mouth ity o f tablet 00:00: daily. [place] [facility] simvastatin 2019-03 Yes TAKE 1 Univ ers 40 mg 2-17 TABLET BY ity of tablet 00:00: MOUTH [place] EVERY DAY Medical WITH PM Branch MEAL pantoprazol 2019-03 Yes 40mg Take 40 mg Univers e 40 mg EC 2-17 by mouth ity o f tablet 00:00: daily. [place] [facility] simvastatin 2019-03 Yes TAKE 1 Univ ers 40 mg 2-17 TABLET BY ity of tablet 00:00: MOUTH [place] EVERY DAY Medical WITH PM Branch MEAL traZODONE Yes TAKE ONE Univ ers 50 mg 7-03 TABLET BY ity of tablet 00:00: MOUTH AT [place] BEDTIME Medical FOR Branch INSOMNIA traZODONE 0 Yes TAKE ONE Univ ers 50 mg 7-03 TABLET BY ity of tablet 00:00: MOUTH AT [place] BEDTIME Medical FOR Branch INSOMNIA ANORO Yes TAKE 1 Univers ELLIPTA 6-23 PUFF BY ity of 62.5-25 00:00: MOUTH [place] mcg/actuati 00 EVERY DAY Med ical on Branch inhalation disk ANORO Yes TAKE 1 Univers ELLIPTA 6-23 PUFF BY ity of 62.5-25 00:00: MOUTH [place] mcg/actuati 00 EVERY DAY Med ical on Branch inhalation disk Vital Signs Vital Name Observation Time Observation Value Comments Source Systolic blood 2021-06-01 21:32:00 128 mm[Hg] [facility] Diastolic blood 2021-06-01 21:32:00 60 mm[Hg] [facility] Heart rate 2021-06-01 21:32:00 53 /min [facility] Body height 2021-06-01 21:32:00 170.2 cm [facility] Body weight 2021-06-01 21:32:00 77.565 kg [facility] BMI 2021-06-01 21:32:00 26.78 kg/m2 [facility] HEIGHT 2020-07-09 10:57:00 170.2 cm WEIGHT 2020-07-09 10:57:00 78.926 kg HEIGHT 2020-01-03 20:00:00 170.2 cm WEIGHT 2020-01-03 20:00:00 72.5 kg HEIGHT 2020-01-03 15:47:00 170.2 cm WEIGHT 2020-01-03 15:47:00 74.844 kg HEIGHT 2020-01-03 15:00:00 170.2 cm WEIGHT 2020-01-03 15:00:00 74.844 kg HEIGHT 2020-01-03 20:00:00 170.2 cm WEIGHT 2020-01-03 20:00:00 72.5 kg HEIGHT 2020-01-03 15:47:00 170.2 cm WEIGHT 2020-01-03 15:47:00 74.844 kg HEIGHT 2020-01-03 15:00:00 170.2 cm WEIGHT 2020-01-03 15:00:00 74.844 kg Procedures This patient has no known procedures. Encounters Start End Encounter Admission Attending Care Care Encounter Source Date/Time Date/Time Type Type Clinicians Facility Department ID 2021-09-01 2021-09-01 Outpatient SONJA SZYMANSKI [facility] [id number] Univers 09:20:00 09:20:00 SONJA EVANS [facility] 2021-06-01 2021-06-01 Office Nathan [facility] [id number] Univers 16:20:00 16:40:00 Visit [facility] [id number] [facility] [id number] Miko as INDIO?BLEA [id number] [address] MEDICAL OFFICE BUILDING 2021-06-01 2021-06-01 Outpatient SONJA SZYMANSKI [facility] [id number] Univers 16:20:00 16:20:00 SONJA EVANS [facility] 2020-07-09 2020-07-09 Outpatient CHERYL ALMACRALITOS [facility] [id number] SLE 00:00:00 00:00:00 [facility] 2020-01-03 2020-01-03 Emergency ER [facility] Emergency [id number] [facility] 15:32:00 15:32:00 Results Test Description Test Time Test Comments Results Result [facility] e Comments CT, CEREBRAL 2020-03-26 Unlisted PERFUSION ANALYSIS 15:00:00 Reason for Exam - Click CHI Yes and Enter [facility] - MEDICAL Reason Below-> CENTERName: Ирина STEELE : 1945 Sex: M FI NAL REPORT CT, CTANGIO BRAIN, CT, CEREBRAL PERFUSION ANALYSIS, CT, CAROTID, ANGIO INDICATION: Neuro deficit, acute, stroke suspected COMPARISON: Same day noncontrast head CT TECHNIQUE: Rapid acquisition spiral images were obtained between the aortic arch and the cranial vertex during intravenous contrast infusion to reconstruct axial images and angiographic 3D maximum intensity projections (MIP) .Three dimensional reformatted images were not available at time of interpretation.Perfus ion imaging technique:Arterial input function: Right ICA terminusVenous outflow function: Straight sinusSite of normal perfusion: right anterior territory Stenosis evaluation reported in compliance with NASCET criteria. DOSE REDUCTION: Dose modulation, iterative reconstruction, and/or weight-based adjustment of the mA/kV was utilized to reduce the radiation dose to as low as reasonably achievable. FINDINGS:CTA head:No intracranial aneurysm, focal stenosis, or proximal branch vessel occlusion. Minor atherosclerosis of the bilateral cavernous and paraclinoid ICAs. The major intradural venous sinuses are patent. CTA neck:Great vessel origins: No occlusion or high-grade stenosis. Carotid arteries: Atherosclerosis of the bilateral carotid bifurcations with less than 50% focal ICA stenosis per NASCET criteria. Vertebral arteries: No occlusion or high-grade stenosis. Mild degenerative changes of the cervical spine. Cervical soft tissues are unremarkable. Visualized lung apices are clear. CT PERFUSION PARAMETRIC MAPS: CBF: SymmetricCBV: SymmetricMTT: SymmetricTTP: Symmetric rCBF<30%: 0 ccTMax>6s: 0 ccMismatch volume: N/AMismatch ratio: N/A IMPRESSION: 1.No perfusion mismatch to indicate acute infarct.2.No proximal branch arterial occlusion or high-grade focal stenosis within the head and neck. Signed: Louisa Cantor MDReport Verified Date/Time: 03/26/2020 15:00:48 , CAROTID, ANGIO 2020-03-24 Unlisted 11:32:00 Reason for Exam - Click CHI Yes and Enter [facility] - MEDICAL Reason CENTERName: Teresa STEELE->No DOUG RAY : 1945 Sex: M FI NAL REPORT CT, CTANGIO BRAIN, CT, CEREBRAL PERFUSION ANALYSIS, CT, CAROTID, ANGIO INDICATION: Neuro deficit, acute, stroke suspected COMPARISON: Same day noncontrast head CT TECHNIQUE: Rapid acquisition spiral images were obtained between the aortic arch and the cranial vertex during intravenous contrast infusion to reconstruct axial images and angiographic 3D maximum intensity projections (MIP) .Three dimensional reformatted images were not available at time of interpretation.Perfus ion imaging technique:Arterial input function: Right ICA terminusVenous outflow function: Straight sinusSite of normal perfusion: right anterior territory Stenosis evaluation reported in compliance with NASCET criteria. DOSE REDUCTION: Dose modulation, iterative reconstruction, and/or weight-based adjustment of the mA/kV was utilized to reduce the radiation dose to as low as reasonably achievable. FINDINGS:CTA head:No intracranial aneurysm, focal stenosis, or proximal branch vessel occlusion. Minor atherosclerosis of the bilateral cavernous and paraclinoid ICAs. The major intradural venous sinuses are patent. CTA neck:Great vessel origins: No occlusion or high-grade stenosis. Carotid arteries: Atherosclerosis of the bilateral carotid bifurcations with less than 50% focal ICA stenosis per NASCET criteria. Vertebral arteries: No occlusion or high-grade stenosis. Mild degenerative changes of the cervical spine. Cervical soft tissues are unremarkable. Visualized lung apices are clear. CT PERFUSION PARAMETRIC MAPS: CBF: SymmetricCBV: SymmetricMTT: SymmetricTTP: Symmetric rCBF<30%: 0 ccTMax>6s: 0 ccMismatch volume: N/AMismatch ratio: N/A IMPRESSION: 1.No perfusion mismatch to indicate acute infarct.2.No proximal branch arterial occlusion or high-grade focal stenosis within the head and neck. Signed: Louisa Cantorepzenaida Verified Date/Time: 03/24/2020 11:32:07 , CTANGIO BRAIN 2020-03-21 Unlisted 15:20:00 Reason for Exam - Click CHI Yes and Enter [facility] - MEDICAL Reason CENTERName: Teresa STEELE->No DOUG TOTH : 1945 Sex: M FI NAL REPORT CT, CTANGIO BRAIN, CT, CEREBRAL PERFUSION ANALYSIS, CT, CAROTID, ANGIO INDICATION: Neuro deficit, acute, stroke suspected COMPARISON: Same day noncontrast head CT TECHNIQUE: Rapid acquisition spiral images were obtained between the aortic arch and the cranial vertex during intravenous contrast infusion to reconstruct axial images and angiographic 3D maximum intensity projections (MIP) .Three dimensional reformatted images were not available at time of interpretation.Perfus ion imaging technique:Arterial input function: Right ICA terminusVenous outflow function: Straight sinusSite of normal perfusion: right anterior territory Stenosis evaluation reported in compliance with NASCET criteria. DOSE REDUCTION: Dose modulation, iterative reconstruction, and/or weight-based adjustment of the mA/kV was utilized to reduce the radiation dose to as low as reasonably achievable. FINDINGS:CTA head:No intracranial aneurysm, focal stenosis, or proximal branch vessel occlusion. Minor atherosclerosis of the bilateral cavernous and paraclinoid ICAs. The major intradural venous sinuses are patent. CTA neck:Great vessel origins: No occlusion or high-grade stenosis. Carotid arteries: Atherosclerosis of the bilateral carotid bifurcations with less than 50% focal ICA stenosis per NASCET criteria. Vertebral arteries: No occlusion or high-grade stenosis. Mild degenerative changes of the cervical spine. Cervical soft tissues are unremarkable. Visualized lung apices are clear. CT PERFUSION PARAMETRIC MAPS: CBF: SymmetricCBV: SymmetricMTT: SymmetricTTP: Symmetric rCBF<30%: 0 ccTMax>6s: 0 ccMismatch volume: N/AMismatch ratio: N/A IMPRESSION: 1.No perfusion mismatch to indicate acute infarct.2.No proximal branch arterial occlusion or high-grade focal stenosis within the head and neck. Signed: Louisa Cantor MDReport Verified Date/Time: 03/21/2020 15:20:23 , BRAIN/STROKE 2020-03-21 Reason for PROTOCOL 15:00:00 exam:->stroke What is the [facility] patient[facility] sedation CENTERName: CEDRIC, zoraida?-> DOUG RAY : No Sedation 1945 Sex: M FI NAL REPORT CT, BRAIN/STROKE PROTOCOL CLINICAL INDICATION: TIA, initial examstroke COMPARISON: None TECHNIQUE: Noncontrast axial CT imaging of the brain and skull. DOSE REDUCTION: Dose modulation, iterative reconstruction, and/or weight-based adjustment of the mA/kV was utilized to reduce the radiation dose to as low as reasonably achievable. FINDINGS:Cerebral parenchyma: Global volume loss with chronic white matter changes. No visible heck-white disruption. No intracranial hemorrhage.Midline structures: Normally positioned.Cerebellum and brainstem: Normal.Ventricles: Normal volume.Extra-axial spaces: Unremarkable. Calvarium and skull base: Intact.Paranasal sinuses and mastoid air cells: Visible chambers are clear.Orbital contents: Included portions unremarkable. Additional findings: None. IMPRESSION: No visible ischemic or hemorrhagic injury. The findings were discussed with stroke neurology housestaff at 1505 hours on January 03, 2020. Signed: JR Yañez Robert MDReport Verified Date/Time: 03/21/2020 15:00:45 Reading Location: [address] Neuro Reading Room ESIUM 2020-01-05 05:30:00 Test Item Value Reference Range Interpretation Comme nts MAGNESIUM (BEAKER) (test code = 627) 2.1 mg/dL 1.6-2.6 Specimen markedly hemolyzed Shovel Engineer ID - [id number] 05:30:00 Test Item Value Reference Range Interpretation Comments PHOSPHORUS (BEAKER) 3.4 mg/dL 2.3-4.7 Specimen markedly (test code = 604) hemolyzed Shovel Engineer ID - EDASIBASIC METABOLIC [id number] 05:30:00 Test Item Value Reference Range Interpretation Comments SODIUM (BEAKER) 140 meq/L 136-145 (test code = 381) POTASSIUM (BEAKER) 4.9 meq/L 3.5-5.1 Specimen markedly (test code = 379) hemolyzed CHLORIDE (BEAKER) 109 meq/L 98-107 H (test code = 382) CO2 (BEAKER) (test 22 meq/L 22-29 code = 355) BLOOD UREA NITROGEN 23 mg/dL 7-21 H (BEAKER) (test code = 354) CREATININE (BEAKER) 0.79 mg/dL 0.57-1.25 Specimen markedly (test code = 358) hemolyzed GLUCOSE RANDOM 84 mg/dL 70-105 (BEAKER) (test code = 652) CALCIUM (BEAKER) 8.9 mg/dL 8.4-10.2 (test code = 697) EGFR (BEAKER) (test 96 mL/min/1.73 ESTIMA SONY GFR IS code = 1092) sq m NOT ACCURATE CREATININE CLEARANCE IN PREDICTING GLOMERULAR FILTRATION RATE . ESTIMATED GFR I S NOT APPLICABLE FOR DIALYSIS PATIEN TS. Shovel Engineer ID - EDASICBC W/PLT COUNT & AUTO [id number] 05:15:00 Test Item Value Reference Range Interpretation Comments WHITE BLOOD CELL COUNT (BEAKER) 10.1 K/ L 3.5-10.5 (test code = 775) RED BLOOD CELL COUNT (BEAKER) 4.98 M/ L 4.63-6.08 (test code = 761) HEMOGLOBIN (BEAKER) (test code = 15.7 GM/DL 13.7-17.5 410) HEMATOCRIT (BEAKER) (test code = 47.6 % 40.1-51.0 411) MEAN CORPUSCULAR VOLUME (BEAKER) 95.6 fL 79.0-92.2 H (test code = 753) MEAN CORPUSCULAR HEMOGLOBIN 31.5 pg 25.7-32.2 (BEAKER) (test code = 751) MEAN CORPUSCULAR HEMOGLOBIN CONC 33.0 GM/DL 32.3-36.5 (BEAKER) (test code = 752) RED CELL DISTRIBUTION WIDTH 12.5 % 11.6-14.4 (BEAKER) (test code = 412) PLATELET COUNT (BEAKER) (test 203 K/CU MM 150-450 code = 756) MEAN PLATELET VOLUME (BEAKER) 10.1 fL 9.4-12.4 (test code = 754) NUCLEATED RED BLOOD CELLS 0 /100 WBC 0-0 (BEAKER) (test code = 413) NEUTROPHILS RELATIVE PERCENT 69 % (BEAKER) (test code = 429) LYMPHOCYTES RELATIVE PERCENT 18 % (BEAKER) (test code = 430) MONOCYTES RELATIVE PERCENT 9 % (BEAKER) (test code = 431) EOSINOPHILS RELATIVE PERCENT 3 % (BEAKER) (test code = 432) BASOPHILS RELATIVE PERCENT 1 % (BEAKER) (test code = 437) NEUTROPHILS ABSOLUTE COUNT 6.98 K/ L 1.78-5.38 H (BEAKER) (test code = 670) LYMPHOCYTES ABSOLUTE COUNT 1.85 K/ L 1.32-3.57 (BEAKER) (test code = 414) MONOCYTES ABSOLUTE COUNT (BEAKER) 0.86 K/ L 0.30-0.82 H (test code = 415) EOSINOPHILS ABSOLUTE COUNT 0.32 K/ L 0.04-0.54 (BEAKER) (test code = 416) BASOPHILS ABSOLUTE COUNT (BEAKER) 0.07 K/ L 0.01-0.08 (test code = 417) IMMATURE GRANULOCYTES-RELATIVE 0 % 0-1 PERCENT (BEAKER) (test code = 2801) MR, BRAIN, WITHOUT [id number] 18:04:00Unlisted Reason for Exam - Click Yes and Enter Reason Below->NoDeos the patient have an implantedelectronic device?->[facility] : 1945 Sex: MFINAL REPORT MR, BRAIN, WITHOUT CONTRAST INDICATION: Neuro deficit, acute, stroke suspected TECHNIQUE: Multiplanar, multisequence MR imaging of the brain without intravenous contrast. COMPARISON: None FINDINGS: Intracranial: No acute intracranial hemorrhage. No restricteddiffusion to suggest acute infarct. No mass effect. No hydrocephalus. Visualized intracranial flow voids are of normal course and caliber. Small focus of encephalomalacia within the left middle frontalgyrus. Generalized cerebral atrophy with ex vacuo dilatation of the ventricular system proportionateto sulci. Sinuses: No evidence of sinusitis. Mastoids are clear. Orbits: Globes are intact. Calvarium \T\ scalp: Unremarkable. IMPRESSION:No evidence of acute infarct. Signed: Louisa Cantorepzenaida Verified Date/Time: 01/04/2020 18:04:54 [id number] 16:08:00 Test Item Value Reference Range Interpretation Comments RPR SCREEN (BEAKER) (test code = Nonreactive Nonreactive 420) SARS-COV2/RT-PCR ([facility])2020-01-04 11:18:00 Test Item Value Reference Range Interpretation Comments SARS-COV2/RT-PCR (test See external report Not Detected, code = 8977969) for linked test Negative, See external report for linked test SARS-COV-2 PERFORMING [facility] [place] [facility] (test code = 9420300) HEMOGLOBIN [id number] 07:44:00 Test Item Value Reference Range Interpretation Comments HEMOGLOBIN A1C (BEAKER) (test code = 6.1 % 4.3-6.1 368) FastingBASIC METABOLIC [id number] 03:40:00 Test Item Value Reference Range Interpretation Comments SODIUM (BEAKER) 142 meq/L 136-145 (test code = 381) POTASSIUM (BEAKER) 3.8 meq/L 3.5-5.1 (test code = 379) CHLORIDE (BEAKER) 109 meq/L 98-107 H (test code = 382) CO2 (BEAKER) (test 26 meq/L 22-29 code = 355) BLOOD UREA NITROGEN 18 mg/dL 7-21 (BEAKER) (test code = 354) CREATININE (BEAKER) 0.87 mg/dL 0.57-1.25 (test code = 358) GLUCOSE RANDOM 89 mg/dL 70-105 (BEAKER) (test code = 652) CALCIUM (BEAKER) 8.9 mg/dL 8.4-10.2 (test code = 697) EGFR (BEAKER) (test 86 mL/min/1.73 ESTIMA SONY GFR IS code = 1092) sq m NOT ACCURATE CREATININE CLEARANCE IN PREDICTING GLOMERULAR FILTRATION RATE . ESTIMATED GFR I S NOT APPLICABLE FOR DIALYSIS PATIEN TS. Shovel Engineer ID - [id number] 03:40:00 Test Item Value Reference Range Interpretation Comments MAGNESIUM (BEAKER) (test code = 1.9 mg/dL 1.6-2.6 627) Shovel Engineer ID - [id number] 03:40:00 Test Item Value Reference Range Interpretation Comments PHOSPHORUS (BEAKER) (test code = 3.4 mg/dL 2.3-4.7 604) Shovel Engineer ID - EDASILIPID [id number] 03:40:00 Test Item Value Reference Range Interpretation Comments TRIGLYCERIDES (BEAKER) (test code = 111 mg/dL 540) CHOLESTEROL (BEAKER) (test code = 138 mg/dL 631) HDL CHOLESTEROL (BEAKER) (test code 44 mg/dL = 976) LDL CHOLESTEROL CALCULATED (BEAKER) 72 mg/dL (test code = 633) Triglyceride Reference Range: Low Risk <150 Borderline 150-199 High Risk 200-499 Very High Risk >=500Cholesterol Reference Range: Low Risk <200 Borderline 200-239 High Risk >240HDL Cholesterol Reference Range: Low Risk >=60 High Risk <40LDL Cholesterol Reference Range: Optimal <100 Near Optimal 100-129 Borderline 130-159 High 160-189 Very High >=190 Shovel Engineer ID - EDASICBC W/PLT COUNT & AUTO [id number] 03:23:00 Test Item Value Reference Range Interpretation Comments WHITE BLOOD CELL COUNT (BEAKER) 8.5 K/ L 3.5-10.5 (test code = 775) RED BLOOD CELL COUNT (BEAKER) 4.54 M/ L 4.63-6.08 L (test code = 761) HEMOGLOBIN (BEAKER) (test code = 14.6 GM/DL 13.7-17.5 410) HEMATOCRIT (BEAKER) (test code = 43.6 % 40.1-51.0 411) MEAN CORPUSCULAR VOLUME (BEAKER) 96.0 fL 79.0-92.2 H (test code = 753) MEAN CORPUSCULAR HEMOGLOBIN 32.2 pg 25.7-32.2 (BEAKER) (test code = 751) MEAN CORPUSCULAR HEMOGLOBIN CONC 33.5 GM/DL 32.3-36.5 (BEAKER) (test code = 752) RED CELL DISTRIBUTION WIDTH 12.3 % 11.6-14.4 (BEAKER) (test code = 412) PLATELET COUNT (BEAKER) (test 167 K/CU MM 150-450 code = 756) MEAN PLATELET VOLUME (BEAKER) 9.5 fL 9.4-12.4 (test code = 754) NUCLEATED RED BLOOD CELLS 0 /100 WBC 0-0 (BEAKER) (test code = 413) NEUTROPHILS RELATIVE PERCENT 60 % (BEAKER) (test code = 429) LYMPHOCYTES RELATIVE PERCENT 25 % (BEAKER) (test code = 430) MONOCYTES RELATIVE PERCENT 10 % (BEAKER) (test code = 431) EOSINOPHILS RELATIVE PERCENT 4 % (BEAKER) (test code = 432) BASOPHILS RELATIVE PERCENT 1 % (BEAKER) (test code = 437) NEUTROPHILS ABSOLUTE COUNT 5.13 K/ L 1.78-5.38 (BEAKER) (test code = 670) LYMPHOCYTES ABSOLUTE COUNT 2.08 K/ L 1.32-3.57 (BEAKER) (test code = 414) MONOCYTES ABSOLUTE COUNT (BEAKER) 0.82 K/ L 0.30-0.82 (test code = 415) EOSINOPHILS ABSOLUTE COUNT 0.37 K/ L 0.04-0.54 (BEAKER) (test code = 416) BASOPHILS ABSOLUTE COUNT (BEAKER) 0.06 K/ L 0.01-0.08 (test code = 417) IMMATURE GRANULOCYTES-RELATIVE 0 % 0-1 PERCENT (BEAKER) (test code = 2801) BASIC METABOLIC [id number] 22:06:00 Test Item Value Reference Range Interpretation Comments SODIUM (BEAKER) 139 meq/L 136-145 (test code = 381) POTASSIUM (BEAKER) 3.8 meq/L 3.5-5.1 (test code = 379) CHLORIDE (BEAKER) 108 meq/L 98-107 H (test code = 382) CO2 (BEAKER) (test 24 meq/L 22-29 code = 355) BLOOD UREA NITROGEN 20 mg/dL 7-21 (BEAKER) (test code = 354) CREATININE (BEAKER) 0.80 mg/dL 0.57-1.25 (test code = 358) GLUCOSE RANDOM 94 mg/dL 70-105 (BEAKER) (test code = 652) CALCIUM (BEAKER) 8.9 mg/dL 8.4-10.2 (test code = 697) EGFR (BEAKER) (test 95 mL/min/1.73 ESTIMA SONY GFR IS code = 1092) sq m NOT ACCURATE CREATININE CLEARANCE IN PREDICTING GLOMERULAR FILTRATION RATE . ESTIMATED GFR I S NOT APPLICABLE FOR DIALYSIS PATIEN TS. Shovel Engineer ID - [id number] 22:06:00 Test Item Value Reference Range Interpretation Comments MAGNESIUM (BEAKER) (test code = 1.9 mg/dL 1.6-2.6 627) Shovel Engineer ID - [id number] 22:06:00 Test Item Value Reference Range Interpretation Comments PHOSPHORUS (BEAKER) (test code = 3.5 mg/dL 2.3-4.7 604) Shovel Engineer ID - DBCBC W/PLT COUNT & AUTO [id number] 21:53:00 Test Item Value Reference Range Interpretation Comments WHITE BLOOD CELL COUNT (BEAKER) 7.2 K/ L 3.5-10.5 (test code = 775) RED BLOOD CELL COUNT (BEAKER) 4.57 M/ L 4.63-6.08 L (test code = 761) HEMOGLOBIN (BEAKER) (test code = 14.3 GM/DL 13.7-17.5 410) HEMATOCRIT (BEAKER) (test code = 43.0 % 40.1-51.0 411) MEAN CORPUSCULAR VOLUME (BEAKER) 94.1 fL 79.0-92.2 H (test code = 753) MEAN CORPUSCULAR HEMOGLOBIN 31.3 pg 25.7-32.2 (BEAKER) (test code = 751) MEAN CORPUSCULAR HEMOGLOBIN CONC 33.3 GM/DL 32.3-36.5 (BEAKER) (test code = 752) RED CELL DISTRIBUTION WIDTH 12.2 % 11.6-14.4 (BEAKER) (test code = 412) PLATELET COUNT (BEAKER) (test 164 K/CU MM 150-450 code = 756) MEAN PLATELET VOLUME (BEAKER) 9.2 fL 9.4-12.4 L (test code = 754) NUCLEATED RED BLOOD CELLS 0 /100 WBC 0-0 (BEAKER) (test code = 413) NEUTROPHILS RELATIVE PERCENT 58 % (BEAKER) (test code = 429) LYMPHOCYTES RELATIVE PERCENT 29 % (BEAKER) (test code = 430) MONOCYTES RELATIVE PERCENT 9 % (BEAKER) (test code = 431) EOSINOPHILS RELATIVE PERCENT 4 % (BEAKER) (test code = 432) BASOPHILS RELATIVE PERCENT 1 % (BEAKER) (test code = 437) NEUTROPHILS ABSOLUTE COUNT 4.14 K/ L 1.78-5.38 (BEAKER) (test code = 670) LYMPHOCYTES ABSOLUTE COUNT 2.08 K/ L 1.32-3.57 (BEAKER) (test code = 414) MONOCYTES ABSOLUTE COUNT (BEAKER) 0.61 K/ L 0.30-0.82 (test code = 415) EOSINOPHILS ABSOLUTE COUNT 0.28 K/ L 0.04-0.54 (BEAKER) (test code = 416) BASOPHILS ABSOLUTE COUNT (BEAKER) 0.06 K/ L 0.01-0.08 (test code = 417) IMMATURE GRANULOCYTES-RELATIVE 0 % 0-1 PERCENT (BEAKER) (test code = 2801) CALCIUM, [id number] 21:52:00 Test Item Value Reference Range Interpretation Comments CALCIUM IONIZED (BEAKER) (test 1.19 mmol/L 1.12-1.27 code = 698) PH, BLOOD (BEAKER) (test code = 7.37 1810) VITAMIN B12 AND [id number] 20:20:00 Test Item Value Reference Range Interpretation Comments VITAMIN B12 (BEAKER) (test code = 1296 pg/mL 213-816 H 774) FOLATE (BEAKER) (test code = 362) 8.10 ng/mL >=7.00 Shovel Engineer ID - BSTSH/FREE T4 IF [id number] 20:00:00 Test Item Value Reference Range Interpretation Comments THYROID STIMULATING HORMONE 1.238 uIU/mL 0.350-4.940 (BEAKER) (test code = 772) Shovel Engineer ID - [id number] 19:26:00 Test Item Value Reference Range Interpretation Comments PROTIME (BEAKER) (test code = 13.8 seconds 11.9-14.2 759) INR (BEAKER) (test code = 370) 1.09 <=5.90 Effective 08/02/2018: PT Reference Range ChangeNew: 11.9-14.2 Previous: 11.7- 14.7RECOMMENDED COUMADIN/WARFARIN INR THERAPY RANGESSTANDARD DOSE: 2.0-3.0 Includes: PROPHYLAXIS for venous thrombosis, systemic embolization; TREATMENT for venous thrombosis and/or pulmonary embolus.HIGH RISK: Target INR is2.5-3.5 for patients wiht mechanical heart valves.HEPATIC FUNCTION [id number] 19:24:00 Test Item Value Reference Range Interpretation Comments TOTAL PROTEIN (BEAKER) (test code = 5.8 gm/dL 6.0-8.3 L 770) ALBUMIN (BEAKER) (test code = 1145) 3.7 g/dL 3.5-5.0 BILIRUBIN TOTAL (BEAKER) (test code 0.5 mg/dL 0.2-1.2 = 377) BILIRUBIN DIRECT (BEAKER) (test 0.2 mg/dL 0.1-0.5 code = 706) ALKALINE PHOSPHATASE (BEAKER) (test 78 U/L 40-150 code = 346) AST (SGOT) (BEAKER) (test code = 20 U/L 5-34 353) ALT (SGPT) (BEAKER) (test code = 10 U/L 6-55 347) Shovel Engineer ID - DB
[2021-08-17] MEDS: HYDROMORPHONE HCL 1 MG/ML INJ IV PRN (19:36)
[2021-08-17] MEDS ORDERED: POLYETHYL GLY 3350 17 GM/DOSE PO PRN (19:41)
[2021-08-17] MEDS ORDERED: ONDANSETRON 4 MG/2 ML VIAL IV PRN (19:41)
[2021-08-17] MEDS ORDERED: LOPERAMIDE HCL 2 MG CAPSULE PO PRN (19:41)
[2021-08-17] MEDS ORDERED: DIPHENHYDRAMINE 25 MG TAB/CAP PO PRN (19:41)
[2021-08-17 20:00] LABS: Absolute Lymphocytes (CBC) 0.8 K/uL (0.7-4.9); Hematocrit 37.7 % (39.6-49.0); Lymphocytes % 9.7 % (15.3-44.8); MCV 94.5 fL (80-100); MPV 7.9 fL (7.6-11.3); RBC Red Blood Cell Count 3.99 M/uL (4.33-5.43)
[2021-08-17 20:04] LABS: Protime INR 1.02
--- NOTE | 2021-08-17 20:18 | ER ---
Nurse's Notes [facility] Name: Vijay Conti Age: 76 yrs Sex: Male : 1945 Arrival Date: 08/17/2021 Time: 14:53 Bed Waiting Private MD: Diagnosis: Cholecystitis, unspecified Presentation: 08/17 15:38 Chief complaint: Spouse and/or significant other states: Pt being admitted by Dr Gooden vg1 for 'E COLI SEPSIS and POSSIBLE CHOLECYSTITIS'. pt denies NVD but states upper ABD pain. Coronavirus screen: Vaccine status: Patient reports receiving the 2nd dose of the covid vaccine. Client denies travel out of the [place] in the last 14 days. Ebola Screen: Patient denies exposure to infectious person. Patient denies travel to an Ebola-affected area in the 21 days before illness onset. Initial Sepsis Screen: Does the patient meet any 2 criteria? No. Patient's initial sepsis screen is negative. Does the patient have a suspected source of infection? No. Patient's initial sepsis screen is negative. Risk Assessment: Do you want to hurt yourself or someone else? Patient reports no desire to harm self or others. Onset of symptoms was August 16, 2021. 15:38 Method Of Arrival: Wheelchair vg1 15:38 Acuity: MARY ALICE 3 vg1 Triage Assessment: 15:43 General: Appears uncomfortable, Behavior is calm, cooperative. Pain: Complains of pain vg1 in right upper quadrant and left upper quadrant Pain currently is 5 out of 10 on a pain scale. Historical: - Allergies: 15:43 Dexilant; vg1 15:43 Iodine; vg1 - Home Meds: 15:43 aspirin 81 mg Oral chew 1 tab once daily [Active]; Cymbalta 60 mg Oral cpDR 1 cap once vg1 daily [Active]; gabapentin 300 mg Oral cap 1 cap 3 times per day [Active]; Iron CR Oral [Active]; multivitamin Oral [Active]; pantoprazole 40 mg Oral TbEC 1 tab once daily [Active]; trazodone 50 mg Oral tab [Active]; fluticasone 50 mcg/actuation nasal spsn 1 spray 2 times per day [Active]; zonisamide 100 mg Oral cap [Active]; vit c 500 mg [Active]; - PMHx: 15:43 COPD; Diabetes - IDDM; gastric bypass; Hyperlipidemia; Hypertension; Myocardial vg1 infarction; PROSTATE CA; Sleep Apnea; Umbilical hernia; Alzheimer's disease; Cerebrovascular accident; - Immunization history:: Client reports receiving the 2nd dose of the Covid vaccine. - Social history:: Smoking status: Reported history of juuling and/or vaping. Vital Signs: 15:38 BP 130 / 48; Pulse 59; Resp 16; Temp 98.7(O); Pulse Ox 96% on R/A; Weight 79.83 kg; vg1 Height 5 ft. 8 in. (172.72 cm); Pain 8/10; 15:38 Body Mass Index 26.76 (79.83 kg, 172.72 cm) vg1 ED Course: 14:53 Patient arrived in ED. rg4 15:43 Triage completed. vg1 15:43 Arm band placed on. vg1 20:16 Nestor Gooden MD is Hospitalizing Provider. ss Administered Medications: No medications were administered Outcome: 20:17 Decision to Hospitalize by Provider. ss 20:18 Patient left the ED. ss Signatures: Susan Smith RN RN ss Vania Davis rg4 Kelly Davis, RN RN vg1 Corrections: (The following items were deleted from the chart) 15:45 15:43 PMHx: Seizure; vg1 vg1
[2021-08-17 20:37] LABS: Bilirubin Direct 1.4 mg/dL (0-0.2); Bilirubin Total 1.8 mg/dL (0.2-1.0); Magnesium 2.1 mg/dL (1.8-2.4); Phosphorus 2.2 mg/dL (2.5-4.9); Potassium 3.7 mmol/L (3.5-5.1); Protein, Total 6.7 g/dL (6.4-8.2); Thyroid Stimulating Hormone 0.737 uIU/mL (0.360-3.740)
--- NOTE | 2021-08-17 20:59 | RAD REPORT ---
EXAM DESCRIPTION: US - Abdomen Exam Complete - 08/17/2021 8:49 pm CLINICAL HISTORY: Abdominal pain. sonogram of abdomen stat COMPARISON: No comparisons FINDINGS: Mild fatty liver is present. No focal liver lesions or intrahepatic biliary dilatation is seen. Gallbladder is distended with small stones and small amount of sludge. Common bile duct is enlarged measuring 10 mm. Both kidneys are normal in size, shape and echotexture. No hydronephrosis, focal lesion of concern or perinephric fluid. The spleen is normal in size measuring 11 cm. The pancreas and aorta are obscured by bowel gas. The visualized aspects of the IVC are grossly normal. IMPRESSION: Gallbladder sludge and small stones are present within enlarged common bile duct. MRCP i s recommended for further evaluation. Fatty liver.
[2021-08-17] MEDS ORDERED: CEFTRIAXONE 1,000 MG in NA CHLORIDE 0.9% 50 ML IVPB SCH (21:00)
--- NOTE | 2021-08-17 21:18 | RAD REPORT ---
EXAM DESCRIPTION: CTAbdomen Pelvis W Contrast - 08/17/2021 9:09 pm CLINICAL HISTORY: Abdominal pain. poss cholecystitis COMPARISON: No comparisons TECHNIQUE: Biphasic CT imaging of the abdomen and pelvis was performed with 100 ml non-ionic IV cont rast. All CT scans are performed using dose optimization technique as appropriate and may include automated exposure control or mA/KV adjustment according to patient size. FINDINGS: Mild linear atelectasis in both lung bases.Postsurgical changes are present about the stom ach. Gallbladder appears distended. There appears to be stones in the gallbladder. Common bile duct appear s mildly dilated measuring up to 9 mm likely contains stone. Mild periportal edema seen in the liver. The spleen, right adrenal gland and kidneys are within gregory l limits. Moderate thickening of the left adrenal gland is present. No bowel obstruction, free air, free fluid or abscess. Moderate stool is present throughout the colon . Sigmoid diverticulosis without diverticulitis. The appendix is normal. Left inguinal hernia is pres ent containing surgical clips. No evidence of significant lymphadenopathy. No suspicious bony findings. IMPRESSION: Gallbladder distension with cholelithiasis. Choledocholithiasis is also suspected. Mild periportal edema is also identified. MRCP would be advised for followup assessment.
--- NOTE | 2021-08-17 21:31 | RAD REPORT ---
EXAM DESCRIPTION: RAD - Chest Pa And Lat (2 Views) - 08/17/2021 9:15 pm CLINICAL HISTORY: e-coli sepsis, possible cholecystitis Chest pain. COMPARISON: Chest Pa And Lat (2 Views) dated 06/26/2020; Chest Single View dated 05/28/2019; Chest Pa And Lat (2 Views) dated 02/08/2018; Chest Single View dated 06/16/2017 FINDINGS: Mild interstitial pulmonary edema. The heart is mildly enlarged in size. No displaced frac tures. IMPRESSION: Mild CHF.
[2021-08-17] MEDS: CEFOXITIN 1 GM in NA CHLORIDE 0.9% 50 ML IVPB SCH (23:14)
[2021-08-17] MEDS: NACHLORIDE 0.45% 1,000 ML IV SCH (23:14)
[2021-08-18 00:04] LABS: Urine Appearance Clear (Clear); Urine Bilirubin Negative (Negative); Urine Blood Negative (Negative); Urine Color Yellow (Yellow); Urine Glucose Negative (Negative); Urine Protein 1+ (Negative); Urine Specific Gravity >=1.030 (1.005-1.030)
[2021-08-18 00:13] LABS: Urine Microscopic Reflex ORDER UMIC
[2021-08-18] MEDS: PIPER TAZO 3.375 GM in NA CHLORIDE 0.9% 100 ML IV SCH ×3 (00:17→16:49)
[2021-08-18] MEDS: HYDROMORPHONE HCL 1 MG/ML INJ IV PRN ×6 (00:17→23:12)
[2021-08-18 01:08] LABS: Urine Bacteria <20 /HPF (NONE SEEN); Urine RBC <5 /HPF (NONE SEEN); Urine Urothelial Cells <5 /HPF (NONE SEEN)
[2021-08-18 05:39] LABS: Absolute Lymphocytes (CBC) 1.3 K/uL (0.7-4.9); Hematocrit 37.3 % (39.6-49.0); Lymphocytes % 15.6 % (15.3-44.8); MCV 94.9 fL (80-100); MPV 7.8 fL (7.6-11.3); RBC Red Blood Cell Count 3.93 M/uL (4.33-5.43)
[2021-08-18] MEDS: CEFOXITIN 1 GM in NA CHLORIDE 0.9% 50 ML IVPB SCH ×3 (05:49→16:48)
[2021-08-18 06:38] LABS: Albumin 2.9 g/dL (3.4-5.0); Bilirubin Total 2.5 mg/dL (0.2-1.0); Magnesium 2.2 mg/dL (1.8-2.4); Potassium 4.5 mmol/L (3.5-5.1); Protein, Total 6.4 g/dL (6.4-8.2)
[2021-08-18] MEDS: Ringers Lactate 1,000 ML IV ONE ×2 (11:19→11:31)
[2021-08-18] MEDS ORDERED: GENTAMICIN SULF 80 MG/2ML INJ ONE (11:27)
[2021-08-18] MEDS ORDERED: GLUCAGON 1 MG/VIAL ONE (11:27)
[2021-08-18] MEDS ORDERED: NA CHLORIDE 0.9% 1,000 ML ONE (11:35)
[2021-08-18] MEDS: NACHLORIDE 0.45% 1,000 ML IV SCH ×2 (16:48→21:39)
[2021-08-18] MEDS: ENOXAPARIN 40 MG/0.4 ML SQ SCH (16:51)
--- NOTE | 2021-08-18 21:37 | P.PN ---
Subjective Date of Service: 08/18/21 Chief Complaint: FEVER, ABDOMEN PAIN Subjective: Improving HE IS DOING LOT BETTER WITH ANTIBIOTICS. Review of Systems 10-point ROS is otherwise unremarkable General: Weakness Physical Examination - Vital Signs Temperature: 97.7 F Blood Pressure: 198/76 Pulse: 62 Respirations: 18 Pulse Ox (%): 94 - Physical Exam General: Alert, In no apparent distress HEENT: Atraumatic, PERRLA, EOMI Neck: Supple, JVD not distended Respiratory: Clear to auscultation bilaterally, Normal air movement Cardiovascular: Regular rate/rhythm, Normal S1 S2 Gastrointestinal: Normal bowel sounds, No tenderness Musculoskeletal: No tenderness Integumentary: No rashes Neurological: Normal speech, Normal tone, Normal affect Lymphatics: No axilla or inguinal lymphadenopathy - Studies Laboratory Data (last 24 hrs) 08/18/21 05:26: Sodium 137, Potassium 4.5, BUN 27 H, Creatinine 1.01, Glucose 123 H, Magnesium 2.2, Total Bilirubin 2.5 H, AST 940 H* D, ALT 825 H* D, Alkaline Phosphatase 622 H 08/18/21 05:26: WBC 8.3, Hgb 12.8 L, Hct 37.3 L, Plt Count 134 L Medications List Reviewed: Yes Assessment And Plan - Current Problems (Diagnosis) (1) Cholangitis Current Visit: Yes Status: Acute Plan: IV ZOSYN AND FLAGYL. IMPROVED. NEEDS ERCP DR. RUSSO HAS CALLED TO [place] WITH BARATRIC SURGERY HE CAN;T DO IT HERE. PROGNOSIS FAIR. (2) Bariatric surgery status Current Visit: Yes Status: Acute (3) Diabetes mellitus Onset Date: 12/16/15 Current Visit: No Status: Chronic Plan: SLIDING SCALE WITH MILD PROTOCOL
[2021-08-18] MEDS ORDERED: D50W 25 GM/50 ML SYRINGE IV PRN (22:33)
[2021-08-18] MEDS ORDERED: GLUCAGON 1 MG/VIAL IM PRN (22:33)
[2021-08-18] MEDS ORDERED: D10W 125 ML IV PRN (22:39)
[2021-08-18] MEDS: METRONIDAZOLE 500mg IVPB 500 MG/100 ML BAG IV SCH (23:16)
[2021-08-19] MEDS: PIPER TAZO 3.375 GM in NA CHLORIDE 0.9% 100 ML IV SCH ×3 (00:50→16:21)
[2021-08-19] MEDS: HYDROMORPHONE HCL 1 MG/ML INJ IV PRN ×5 (03:58→21:32)
[2021-08-19 04:18] LABS: Absolute Lymphocytes (CBC) 1.4 K/uL (0.7-4.9); Hematocrit 34.2 % (39.6-49.0); Lymphocytes % 18.9 % (15.3-44.8); MCV 93.8 fL (80-100); RBC Red Blood Cell Count 3.64 M/uL (4.33-5.43)
[2021-08-19 04:25] LABS: Magnesium 2.1 mg/dL (1.8-2.4); Potassium 3.9 mmol/L (3.5-5.1)
[2021-08-19] MEDS: METRONIDAZOLE 500mg IVPB 500 MG/100 ML BAG IV SCH ×3 (06:19→17:58)
[2021-08-19] MEDS: INSULIN -REGULAR HUMAN 50 UNIT/0.5 ML ML SQ SCH ×4 (07:30→21:00)
--- NOTE | 2021-08-19 08:09 | EKG ---
Test Date: 2021-08-18 Test Time: 09:23:59 Hairspring I Inspector: OFELIA MEASUREMENT RESULTS: Intervals: Rate: 47 CO: 160 QRSD: 104 QT: 460 QTc: 407 [place]: P: 58 CO: 160 QRS: 2 T: -28 INTERPRETIVE STATEMENTS: Marked sinus bradycardia Minimal voltage criteria for LVH, may be normal variant Nonspecific T wave abnormality Abnormal ECG Compared to ECG 06/26/2020 11:51:49 Left ventricular hypertrophy now present T-wave abnormality now present Electronically Signed On 08-19-21 08:05:47 CDT by Robin James
[2021-08-19] MEDS: HYDRALAZINE HCL 20 MG/ML VIAL IV PRN ×2 (08:52→16:18)
[2021-08-19 11:11] VITALS: O2SAT 99
[2021-08-19] MEDS: NACHLORIDE 0.45% 1,000 ML IV SCH (12:21)
[2021-08-19] MEDS: ENOXAPARIN 40 MG/0.4 ML SQ SCH (16:18)
[2021-08-19 17:34] VITALS: BMI 26.8
--- NOTE | 2021-08-19 18:09 | P.PN ---
Subjective Date of Service: 08/19/21 Chief Complaint: RUQ>gen abd pain, fever, jaundice, ascending cholangitis Subjective: No new changes (Still with abdominal pain. Awaiting transfer to tertiary center for ascending cholangitis, cholelithiasis, dilated CBD, with probable cholecystitis / choledocholithiasis. Family with him in room. H/o gastric bypass surgery.) Review of Systems Unremarkable General: Weakness Gastrointestinal: Abdominal Pain Physical Examination - Vital Signs Temperature: 98.1 F Blood Pressure: 173/73 Pulse: 52 Respirations: 16 Pulse Ox (%): 97 - Physical Exam General: Alert, Oriented x3, Cooperative, Mild distress HEENT: Atraumatic, Normocephalic, PERRLA, EOMI, Scleral icterus Neck: Supple Respiratory: Normal air movement Cardiovascular: Normal pulses Gastrointestinal: No rebound, Tenderness, Guarding Neurological: Normal speech, Normal strength at 5/5 x4 extr - Studies Medications List Reviewed: Yes Assessment And Plan - Current Problems (Diagnosis) (1) Ascending cholangitis Current Visit: Yes Status: Acute (2) Sepsis Current Visit: Yes Status: Acute (3) RUQ abdominal pain Current Visit: Yes Status: Acute (4) Generalized abdominal pain Current Visit: Yes Status: Acute (5) Abnormal CT of the abdomen Current Visit: Yes Status: Acute (6) Abnormal ultrasound of abdomen Current Visit: Yes Status: Acute (7) Cholelithiasis Current Visit: Yes Status: Acute (8) Bariatric surgery status Current Visit: Yes Status: Acute - Plan REC: 1) await transfer to tertiary center for advanced ERCP in patient with gastric bypass anatomy 2) continue IVFs and IV antibiotics 3) allow ice chips and water and juice 4) monitor labs 5) prn pain medications
--- NOTE | 2021-08-19 18:34 | P.PN ---
Subjective Date of Service: 08/19/21 Chief Complaint: RUQ>gen abd pain, fever, jaundice, ascending cholangitis Subjective: Improving HE IS DOING LOT BETTER WITH ANTIBIOTICS. ERCP TO BE DONE BY [facility] GOOD[facility] DR RUSSO CAN'T GO AROUND THE GASTRIC BYPASS SURGERY. THEN HE WILL RETURN FOR GB REMOVAL. Physical Examination - Vital Signs Temperature: 98.1 F Blood Pressure: 173/73 Pulse: 52 Respirations: 16 Pulse Ox (%): 97 - Studies Medications List Reviewed: Yes Assessment And Plan - Current Problems (Diagnosis) (1) Cholangitis Current Visit: Yes Status: Acute Plan: IV ZOSYN AND FLAGYL. IMPROVED. NEEDS ERCP DR. RUSSO HAS CALLED TO [facility] WITH BARATRIC SURGERY HE CAN;T DO IT HERE. PROGNOSIS FAIR. STABLE. CONT IV ABX. (2) Bariatric surgery status Current Visit: Yes Status: Acute (3) Diabetes mellitus Onset Date: 12/16/15 Current Visit: No Status: Chronic Plan: SLIDING SCALE WITH MILD PROTOCOL
[2021-08-19] MEDS ORDERED: HOME MED 1 EA UNK (Fluticasone Propionate [Flonase Allergy Relief] 9.9 ML Spray.Susp) NAS PRN (18:37)
[2021-08-19] MEDS ORDERED: HYDRALAZINE HCL 20 MG/ML VIAL IV PRN (18:39)
[2021-08-19] MEDS ORDERED: GABAPENTIN 300 MG CAP PO SCH (21:00)
[2021-08-19] MEDS ORDERED: HOME MED 1 EA UNK (Zonisamide [Zonegran] 100 MG Capsule) PO SCH (21:00)
[2021-08-19] MEDS ORDERED: TRAZODONE 50 MG TABLET PO SCH (21:00)
[2021-08-19 21:16] VITALS: BP 164/76; TEMP 98.5
[2021-08-20] MEDS ORDERED: PANTOPRAZOLE 40MG TABLET PO SCH (09:00)
[2021-08-20] MEDS ORDERED: HOME MED 1 EA UNK (Aripiprazole [Abilify] 2 MG Tablet) PO SCH (09:00)
[2021-08-20] MEDS ORDERED: HOME MED 1 EA UNK (Duloxetine Hcl [Cymbalta] 60 MG Capsule.Dr) PO SCH (09:00)
[2021-08-20] MEDS ORDERED: DULOXETINE 30 MG CAP PO SCH (09:00)
== END 2021-08-19 23:29 | disposition short-term general hospital (02) | DRG 872 ==
LOC: ER 14:48 → 2ND 17:30 → OBSVTOIN 08-18 18:26
PROVIDERS: ADMIT Internal Medicine; ATTEND Internal Medicine
DX: A41.51 Sepsis due to Escherichia coli [E. coli] (principal); K74.3 Primary biliary cirrhosis; G47.33 Obstructive sleep apnea (adult) (pediatric); I10 Essential (primary) hypertension; I25.10 Atherosclerotic heart disease of native coronary artery without angina pectoris; G30.9 Alzheimer's disease, unspecified; F02.80 Dementia in other diseases classified elsewhere, unspecified severity, without behavioral disturbance, psychotic disturbance, mood disturbance, and anxiety; E11.43 Type 2 diabetes mellitus with diabetic autonomic (poly)neuropathy; J44.9 Chronic obstructive pulmonary disease, unspecified; Z98.84 Bariatric surgery status; Z95.5 Presence of coronary angioplasty implant and graft; Z20.822 Contact with and (suspected) exposure to COVID-19
CPT/HCPCS: 36415; 71046; 74177; 76700; 80048; 80076; 81003; 81015; 82306; 82607; 82947; 83735; 84100; 84443; 85025; 85610; 85730; 93005; 99281; J0360; J0694; J1170; J1580; J1610; J1650; J2543; J3490; J7030; J7120; Q9967; U0003

== ENCOUNTER 2021-09-14 06:33 | Day surgery (SDC) | payer OTHER ==
[2021-09-14] MEDS ORDERED: CEFOXITIN SODIUM 1 GM/VIAL ONE (06:59)
[2021-09-14 07:34] LABS: Albumin 3.3 g/dL (3.4-5.0); Bilirubin Direct 0.2 mg/dL (0-0.2); Bilirubin Total 0.6 mg/dL (0.2-1.0); Protein, Total 6.1 g/dL (6.4-8.2)
[2021-09-14] MEDS: Ringers Lactate 1,000 ML IV ONE (07:50)
[2021-09-14 07:59] LABS: SARS-CoV-2 Antigen Rapid Res Negative (Negative)
[2021-09-14] MEDS ORDERED: propofoL 200 MG/20 ML VIAL IV ONE (08:03)
[2021-09-14] MEDS ORDERED: ROCURONIUM 50 MG/5 ML VIAL IV ONE (08:04)
[2021-09-14] MEDS ORDERED: FENTANYL CITR 100 MCG/2 ML ONE (08:04)
[2021-09-14] MEDS ORDERED: MIDAZOLAM HCL 2 MG/2 ML INJ ONE (08:04)
[2021-09-14] MEDS ORDERED: ONDANSETRON 4 MG/2 ML VIAL ONE ×2 (08:06→11:02)
[2021-09-14] MEDS ORDERED: LIDOCAINE 1% MPF 2 ML AMPULE ONE (08:06)
[2021-09-14] MEDS ORDERED: GLYCOPYRROLATE 0.2 MG/ML SYR ONE ×3 (08:54→10:10)
[2021-09-14] MEDS ORDERED: dexAMETHasone 4 MG/ML VIAL ONE (08:56)
--- NOTE | 2021-09-14 09:09 | P.BOP ---
Preoperative diagnosis: acute cholecystitis, sympt cholelithiasis, s/p ERCP and stent, choledocholi Postoperative diagnosis: hx of gastric bypass Primary procedure: Laparoscopic cholecystectomy Movable Bulkhead Installer: RANJITH GUNDERSON (CREDIT RISK SPECIALIST) Estimated blood loss: <10cc Specimen: gb Findings: as above Anesthesia: General Complications: None Transferred to: Recovery Room Condition: Good
[2021-09-14] MEDS ORDERED: NEOSTIGMINE 1 MG/ML -10 ML VIAL ONE (09:23)
[2021-09-14] MEDS ORDERED: KETOROLAC 30 MG/ML INJ ONE (10:11)
[2021-09-14] MEDS ORDERED: HYDROMORPHONE HCL 1 MG/ML INJ ONE (10:21)
[2021-09-14] MEDS ORDERED: HYDROCODONE/APAP 7.5/325 MG TAB ONE (11:26)
[2021-09-14 12:00] VITALS: TEMP 98; O2SAT 100
[2021-09-14 12:02] VITALS: BP 180/59
--- NOTE | 2021-09-14 12:36 | DS ---
Date of Discharge: 09/14/2021 Diagnoses: Acute cholecystitis, symptomatic cholelithiasis, status post ERCP and stent placement, ch oledocholithiasis Procedure: Laparoscopic cholecystectomy. Disposition: Home. Activity: As tolerated. No heavy lifting. Plan: Follow up in my office in 1 week. Call for appointment at [phone]. Keep area dry for 48 jaz rs, then may shower. Keep Steri-Strip intact. Follow up in my office in a week. Follow with the [place] stroenterologist. Medications: Include Tylenol No.3 q.4 hours p.r.n. pain. CADENCE/MODRoshan Voice ID: [id number] Report ID: [id number]
--- NOTE | 2021-09-14 12:36 | OP ---
Date of Procedure: 09/14/2021 Surgeon: Garrett Brooks MD Deaf Interpreter: Mayte Rowell. Preoperative Diagnoses: Acute cholecystitis, symptomatic cholelithiasis, status post ERCP, and stent placement, history of choledocholithiasis, history of gastric bypass. Postoperative Diagnoses: Acute cholecystitis, symptomatic cholelithiasis, status post ERCP, and sten t placement, history of choledocholithiasis, history of gastric bypass. Procedure: Laparoscopic cholecystectomy. Estimated Blood Loss: Less than 10 mL. Anesthesia: General plus local. Specimen: Gallbladder. Indication: This is the case of a 76-year-old patient, who comes several weeks ago with acute cholec ystitis, symptomatic cholelithiasis, also found to have choledocholithiasis. Apparently as family de scribes, they cannot be treated locally since the ERCP have to be done in [place], so he was sent to [place] from ERCP by Dr. Martinez. Apparently, he also has stent placement and then he does not want to have surgery in that area. He sent to me to have a cholecystectomy done. He wants me to do it. He understands the benefits, alternatives, and risks of laparoscopic possible open cholecystectomy, w hich include, but not limited to infection, bleeding, damage to adjacent structures, anesthesia compl ication, choledocholithiasis, bile leak, pancreatitis, GA, and even . He also understands this may not relieve any symptoms. He might need more than one surgical intervention. He understood, sig rayne a consent. Him and his family member fully explained the importance of following up with Dr. Juan Carlos newell or Dr. Martinez. Those are the or nurse manager, who were involved with the ERCP treatment, aline nt placement, and it is important that we do not forget about that and he has to go back there to hav e that stent removed. He was advised to contact the Surgery and the GI doctor this afternoon as poss ible, so there he can get whatever is scheduled and whatever is more convenient for the patient and t he or nurse manager and we stressed out the importantly to make sure that he understands the import ance of it. Procedure In Detail: The patient was brought to the operating room, placed in supine position. Anes thesia was done without complication. Abdominal area was prepped and draped in the usual sterile fas hion. Marcaine 0.5% was injected for local anesthetic followed by sharp incision of the skin in the periumbilical region. Incision was carried down to fascia, which was opened under direct vision. Pe ritoneum was encountered, opened under direct vision. Vicryl #1 placed inside the fascia. Christian tr ocar was carefully introduced. Pneumoperitoneum was obtained. I placed 3 more trocars, 5 mm each on e of them, 1 in epigastric area and 2 in the right upper quadrant using same technique, which consist ed of local anesthetic, sharp incision of the skin, introduction of the trocars under direct vision. This allowed me to put a grasper in the fundus of the gallbladder, another grasper in the infundibul um, retracting the gallbladder in the inferolateral fashion, exposing the triangle of Calot and obtai jarvis critical view. Cystic duct and cystic artery were clearly isolated, freed circumferentially and a connection between those and the gallbladder were clearly identified. I proceeded to ligate those by using at least 3 clips proximal, 1 clip distal, ligation in middle. Same was done with the cysti c artery. Hepatic arteries and common bile duct were protected at all times. The gallbladder was re moved from liver using Bovie cauterizer and removed from abdominal cavity using EndoCatch through the umbilical incision. The area was inspected once again. No bile leak. No bleeding. At that moment , I proceeded to remove the trocars under direct vision. Deflated pneumoperitoneum, closed the fasci a with #1 Vicryl. Irrigated the subcutaneous tissue, closed that with 3-0 chromic and skin with 3-0 chromic. Sponge count, instrument counts correct. The patient tolerated the procedure well. The mehran mora was sent to recovery room in stable condition. CADENCE/TOMMY Voice ID: [id number] Report ID: [id number]
== END 2021-09-14 11:58 | disposition home or self-care (01) ==
LOC: OR 06:33
PROVIDERS: ATTEND Surgery
PROC: 0FT44ZZ Resection of Gallbladder, Percutaneous Endoscopic Approach (ICD-10-PCS; principal; 2021-09-14 08:30)
DX: K80.10 Calculus of gallbladder with chronic cholecystitis without obstruction (principal); Z98.84 Bariatric surgery status; I10 Essential (primary) hypertension; G30.9 Alzheimer's disease, unspecified; F02.80 Dementia in other diseases classified elsewhere, unspecified severity, without behavioral disturbance, psychotic disturbance, mood disturbance, and anxiety; I25.2 Old myocardial infarction; D64.9 Anemia, unspecified; Z85.46 Personal history of malignant neoplasm of prostate; Z20.822 Contact with and (suspected) exposure to COVID-19
CPT/HCPCS: 36415; 80076; 82150; 83690; 87811; 88304; J0694; J1100; J1170; J2250; J2405; J2704; J2710; J3010; J7120

== ENCOUNTER → 2023-03-16 | Emergency (ER) | payer OTHER ==
[~2023-03-16] MED LIST: HYDRALAZINE HCL 20 MG/ML VIAL ONE; HYDROMORPHONE HCL 1 MG/ML INJ ONE; ONDANSETRON 4 MG/2 ML VIAL ONE
[2023-03-16 13:08] LABS: Absolute Lymphocytes (CBC) 2.2 K/uL (0.7-4.9); Hematocrit 40.3 % (39.6-49.0); Lymphocytes % 20.7 % (15.3-44.8); MCV 91.3 fL (80-100); MPV 7.7 fL (7.6-11.3); Platelets 192 thou/uL (152-406); RBC Red Blood Cell Count 4.41 M/uL (4.33-5.43)
[2023-03-16 13:27] LABS: Albumin 3.2 g/dL (3.4-5.0); Bilirubin Direct 0.2 mg/dL (0-0.2); Bilirubin Indirect, Calculated 0.4 mg/dL (0.2-0.8); Bilirubin Total 0.6 mg/dL (0.2-1.0); Magnesium 1.9 mg/dL (1.6-2.4); Potassium 4.2 mEq/L (3.5-5.1); Protein, Total 6.6 g/dL (6.4-8.2); Troponin High Sensitivity 25.6 pg/mL (<58.9)
--- NOTE | 2023-03-16 13:50 | RAD REPORT ---
EXAM DESCRIPTION: [place] Single View03/16/2023 1:14 pm CLINICAL HISTORY: Chest pain COMPARISON: none FINDINGS: The lungs appear clear of acute infiltrate. The heart is normal size IMPRESSION: No acute abnormalities displayed
--- NOTE | 2023-03-16 14:05 | RAD REPORT ---
EXAM DESCRIPTION: CT - Angio Aorta For Dissection - 03/16/2023 1:35 pm CLINICAL HISTORY: . Chest and abd pain COMPARISON: CT abdomen 2021 TECHNIQUE: Computed tomography angiography of the chest, abdomen pelvis were obtained. 100 cc Isovue 370 was administered intravenously. Coronal and sagittal reconstruction were performed. MIP 3D reconstruction was performed All CT scans are performed using dose optimization technique as appropriate and may include automated exposure control or mA/KV adjustment according to patient size. FINDINGS: An aortic dissection is not seen. Aortic root 5.5 centimeters. Mild to moderate plaque is present within the aorta and iliac vessels. Mild plaque celiac artery SMA and RUSSELL are patent . A lung consolidation is not present. A pericardial effusion is not seen. A pleural effusion is not no bentley. The liver,spleen, pancreas,adrenals and kidneys demonstrate no significant abnormality. Cholecystecto my There no evidence diverticulitis. Normal appendix Postsurgical changes lumbar spine The rectum is mildly distended with stool. Moderate amount stool within the colon. Prostate gland moderately enlarged IMPRESSION: Negative for an aortic dissection. 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
--- NOTE | 2023-03-16 14:26 | ER ---
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 Ebola Screen: No symptoms or risks identified at this time. Risk Assessment: Do you want to hurt yourself or someone else? Patient reports no desire to harm self or others. 12:43 Method Of Arrival: EMS: [facility] ld1 12:43 Acuity: MARY ALICE 3 ld1 12:43 Chief complaint: EMS states: toned out to clinic for low heart rate and weakness. Pt ld1 denies pain. C/O shakiness and weakness X 1 week. Initial Sepsis Screen: Does the patient meet any 2 criteria? No. Patient's initial sepsis screen is negative. Does the patient have a suspected source of infection? No. Patient's initial sepsis screen is negative. Onset of symptoms was March 16, 2023. Triage Assessment: 12:42 General: Appears in no apparent distress. comfortable, Behavior is calm, cooperative, ld1 appropriate for age. Pain: Denies pain. EENT: No signs and/or symptoms were reported regarding the EENT system. Neuro: Level of Consciousness is awake, alert, obeys commands, Oriented to person, place, time, situation. Cardiovascular: Capillary refill < 3 seconds Patient's skin is warm and dry. Respiratory: Airway is patent Respiratory effort is even, unlabored. GI: Abdomen is round non-distended. : No signs and/or symptoms were reported regarding the genitourinary system. Derm: No signs and/or symptoms reported regarding the dermatologic system. Musculoskeletal: No signs and/or symptoms reported regarding the musculoskeletal system. Historical: - Allergies: 12:42 Dexilant; ld1 12:42 Iodine; ld1 - Home Meds: 12:49 pantoprazole 40 mg oral tablet, delayed release (enteric coated) 1 tab daily [Active]; ld1 duloxetine 60 mg oral Capsule, Delayed Release Sprinkle 1 cap daily [Active]; trazodone 50 mg Oral tablet 1 tab daily [Active]; gabapentin 600 mg oral tablet 1 tab daily [Active]; zonisamide 100 mg oral capsule 1 cap daily [Active]; aspirin 81 mg Oral capsule 1 cap daily [Active]; simvastatin 40 mg Oral tablet 1 tab daily [Active]; carvedilol 3.125 mg oral tablet 1 tab once [Active]; donepezil 10 mg oral tablet 1 tab daily [Active]; aripiprazole 5 mg oral tablet 1 tab daily [Active]; metformin 500 mg Oral tablet 1 tab daily [Active]; - PMHx: 12:42 Diabetes - IDDM; Umbilical hernia; Myocardial infarction; PROSTATE CA; Sleep Apnea; ld1 Hyperlipidemia; gastric bypass; Cerebrovascular accident; Alzheimer's disease; COPD; Hypertension; 12:49 Aneurysm; ld1 - Immunization history:: Adult Immunizations up to date. - Social history:: Smoking status: Patient denies any tobacco usage or history of. Screenin:44 [facility] ED Fall Risk Assessment (Adult) History of falling in the last 3 months, ld1 including since admission No falls in past 3 months (0 pts). Abuse screen: Denies threats or abuse. Denies injuries from another. Nutritional screening: No deficits noted. Tuberculosis screening: No symptoms or risk factors identified. Assessment: 12:44 Reassessment: See triage assessment. ld1 Vital Signs: 12:42 BP 170 / 78; Pulse 34; Resp 18; Temp 98.2(TE); Pulse Ox 98% on R/A; Weight 70.31 kg; ld1 Height 5 ft. 8 in. ; Pain 0/10; 14:16 BP 157 / 80; Pulse 44; Resp 16; Pulse Ox 99% ; ko1 16:41 BP 110 / 78; Pulse 94; Resp 16; Pulse Ox 99% on R/A; ko1 12:42 Body Mass Index 23.57 (70.31 kg, 172.72 cm) ld1 12:42 Pain Scale: Adult ld1 ED Course: 12:41 Patient arrived in ED. ld1 12:42 Herlinda Fong MD is Attending Physician. sp3 12:42 Arm band placed on right wrist. EKG completed in triage. Results shown to MD. ld1 12:43 Triage completed. ld1 12:44 Patient has correct armband on for positive identification. Placed in gown. Bed in low ld1 position. Call light in reach. Side rails up X2. hospital monitor on. Pulse ox on. NIBP on. Door closed. Noise minimized. Warm blanket given. 12:44 No provider procedures requiring assistance completed. Maintain EMS IV. Dressing ld1 intact. Good blood return noted. Site clean \T\ dry. Gauge \T\ site: 20G RAC. 12:45 Maria Teresa Simms, RN is Primary Nurse. ld1 13:03 Inserted saline lock: 20 gauge in left forearm, using aseptic technique. Blood ld1 collected. 13:15 XRAY Chest (1 view) In Process Unspecified. EDMS 13:37 CT Aorta for Dissection In Process Unspecified. EDMS 14:33 ini. bd 14:34 initiated transfer to [facility]. bd 15:34 pt accepted in transfer to [facility] by dr Perez admin approval given by Khris Schuster.bd 16:41 Provided Education on: na. ko1 16:41 Patient transferred, IV remains in place. ko1 Administered Medications: 14:45 Drug: hydrALAZINE IVP 10 mg IVP once Route: IVP; Site: right forearm; ko1 15:28 Drug: Ondansetron IVP 4 mg IVP once; over 2 minutes Route: IVP; Site: right forearm; ko1 15:37 Drug: hydrALAZINE IVP 10 mg IVP once Route: IVP; Site: right forearm; ko1 15:37 Drug: HYDROmorphone IVP 1 mg IVP once Route: IVP; Site: right forearm; ko1 Medication: 16:41 VIS not applicable for this client. ko1 Outcome: 14:26 ER care complete, transfer ordered by . sp3 16:41 Transferred by ground EMS to [facility], Transfer form completed. ko1 X-rays sent w/ patient. 16:41 Condition: stable 16:41 Instructed on the need for transfer, 16:49 Patient left the ED. ko1 Signatures: Dispatcher [employer] EDMS Elvia Chavez Lauren, RN RN ld1 Herlinda Fong MD MD sp3 Bambi Alexander RN RN ko1
--- NOTE | 2023-03-16 14:26 | EDPHYS ---
Physician Documentation [facility] Name: Vijay Conti Age: 78 yrs Sex: Male : 1945 Arrival Date: 03/16/2023 Time: 12:35 Bed 4 Private MD: ED Physician Herlinda Fong HPI: 03/16 12:52 This 78 yrs old Male presents to ER via EMS with complaints of General Weakness. sp3 12:52 78-year-old male with history of diabetes, [place], prostate cancer presents to ED for sp3 generalized weakness mild chest pain and near syncope from his neurologist office during a routine visit that was being evaluated for tremors. Patient also has a history of a 4 cm AAA. Patient's blood pressure was 70-80 systolically as reported by EMS which was reported to them by clinic staff. Pulse rate was also in the 30s to 40s as reported. Pulse was in the 60s for EMS and during transport. Patient has no other complaints currently except for generalized weakness and near syncope. He denies headache, neck pain, current chest pain, shortness of breath, back pain, full syncope, seizure, rash, bleeding, melena, known sick contacts, travel history, fever, URI symptoms, or any other signs or symptoms on ROS at this time.. Historical: - Allergies: 12:42 Dexilant; ld1 12:42 Iodine; ld1 - Home Meds: 12:49 pantoprazole 40 mg oral tablet, delayed release (enteric coated) 1 tab daily [Active]; ld1 duloxetine 60 mg oral Capsule, Delayed Release Sprinkle 1 cap daily [Active]; trazodone 50 mg Oral tablet 1 tab daily [Active]; gabapentin 600 mg oral tablet 1 tab daily [Active]; zonisamide 100 mg oral capsule 1 cap daily [Active]; aspirin 81 mg Oral capsule 1 cap daily [Active]; simvastatin 40 mg Oral tablet 1 tab daily [Active]; carvedilol 3.125 mg oral tablet 1 tab once [Active]; donepezil 10 mg oral tablet 1 tab daily [Active]; aripiprazole 5 mg oral tablet 1 tab daily [Active]; metformin 500 mg Oral tablet 1 tab daily [Active]; - PMHx: 12:42 Diabetes - IDDM; Umbilical hernia; Myocardial infarction; PROSTATE CA; Sleep Apnea; ld1 Hyperlipidemia; gastric bypass; Cerebrovascular accident; Alzheimer's disease; COPD; Hypertension; 12:49 Aneurysm; ld1 - Immunization history:: Adult Immunizations up to date. - Social history:: Smoking status: Patient denies any tobacco usage or history of. ROS: 12:54 Eyes: Negative for injury, pain, redness, and discharge, ENT: Negative for injury, sp3 pain, and discharge, Neck: Negative for injury, pain, and swelling, Respiratory: Negative for shortness of breath, cough, wheezing, and pleuritic chest pain, Abdomen/GI: Negative for abdominal pain, nausea, vomiting, diarrhea, and constipation, Back: Negative for injury and pain, MS/Extremity: Negative for injury and deformity, Skin: Negative for injury, rash, and discoloration, Psych: Negative for depression, anxiety, suicide ideation, homicidal ideation, and hallucinations, Allergy/Immunology: Negative for hives, rash, and allergies, Endocrine: Negative for neck swelling, polydipsia, polyuria, polyphagia, and marked weight changes, Hematologic/Lymphatic: Negative for swollen nodes, abnormal bleeding, and unusual bruising, 12:54 All other systems are negative, Exam: 12:54 Constitutional: This is a well developed, well nourished patient who is awake, alert, sp3 and in no acute distress. Head/Face: Normocephalic, atraumatic. Eyes: Pupils equal round and reactive to light, extra-ocular motions intact. Lids and lashes normal. Conjunctiva and sclera are non-icteric and not injected. Cornea within normal limits. Periorbital areas with no swelling, redness, or edema. ENT: Nares patent. No nasal discharge, no septal abnormalities noted. External auditory canals are clear. Oropharynx with no redness, swelling, or masses, exudates, or evidence of obstruction, uvula midline. Mucous membranes moist. Neck: Trachea midline, no thyromegaly or masses palpated, and no cervical lymphadenopathy. Supple, full range of motion without nuchal rigidity, or vertebral point tenderness. No Meningismus. Chest/axilla: Normal chest wall appearance and motion. Nontender with no deformity. No lesions are appreciated. Respiratory: Lungs have equal breath sounds bilaterally, clear to auscultation and percussion. No rales, rhonchi or wheezes noted. No increased work of breathing, no retractions or nasal flaring. Abdomen/GI: Soft, non-tender, with normal bowel sounds. No distension or tympany. No guarding or rebound. No evidence of tenderness throughout. Back: No spinal tenderness. No costovertebral tenderness. Full range of motion. Skin: Warm, dry with normal turgor. Normal color with no rashes, no lesions, and no evidence of cellulitis. MS/ Extremity: Pulses equal, no cyanosis. Neurovascular intact. Full, normal range of motion. Neuro: Awake and alert, GCS 15, oriented to person, place, time, and situation. Cranial nerves II-XII grossly intact. Motor strength 5/5 in all extremities. Sensory grossly intact. Cerebellar exam normal. Normal gait. Psych: Awake, alert, with orientation to person, place and time. Behavior, mood, and affect are within normal limits. 13:05 Cardiovascular: Bigeminy pattern noted on pulse., sp3 13:05 ECG was reviewed by the Attending Physician. EKG demonstrates sinus rhythm at 66 bpm with multiple PVCs and a bigeminy pattern and nonspecific diffuse ST/T changes without evidence of acute ischemia. Vital Signs: 12:42 BP 170 / 78; Pulse 34; Resp 18; Temp 98.2(TE); Pulse Ox 98% on R/A; Weight 70.31 kg; ld1 Height 5 ft. 8 in. ; Pain 0/10; 14:16 BP 157 / 80; Pulse 44; Resp 16; Pulse Ox 99% ; ko1 16:41 BP 110 / 78; Pulse 94; Resp 16; Pulse Ox 99% on R/A; ko1 12:42 Body Mass Index 23.57 (70.31 kg, 172.72 cm) ld1 12:42 Pain Scale: Adult ld1 MDM: 12:42 Patient medically screened. sp3 13:05 Data reviewed: vital signs, nurses notes. ED course: 78-year-old male with generalized sp3 weakness, resolved hypertension, resolved bradycardia and bigeminy pattern on EKG with ongoing weakness symptoms. Differential diagnosis includes acute coronary syndrome, electrolyte abnormality, AAA, other electrical conduction pathology, among others. I am not highly suspicious for sepsis, shock, CVA, or any other critical pathology. Workup will include EKG, laboratory values, CT scan of the aorta and general observation with probable admission and cardiology consultation.. 14:20 ED course: Negative workup except for 5.5 cm aortic root aneurysm. Family is now onsite sp3 and have an old CT report from April 2022 which at that time was 4.2 centimeter aneurysm. Patient also endorses upper and mid back pain. No dissection is noted on the CT scan. Pain is under control and laboratory titers are otherwise negative. Pulse remains in the 50s and blood pressure is normal. We will transfer patient to [facility] for vascular surgery and/or CT surgery consultation.. 14:51 ED course: Discussed with CV surgical team at [facility] who have accepted the sp3 patient to their ICU. We will administer hydralazine to help control BP and increased heart rate. Patient will be transferred via ground. I have discussed plan with family and patient who are on board.. 03/16 12:43 Order name: Basic Metabolic Panel; Complete Time: 13:29 3 03/16 12:43 Order name: CBC with Diff; Complete Time: 13: [facility] 03/16 12:43 Order name: LFT's; Complete Time: 13: 3 03/16 12:43 Order name: Magnesium; Complete Time: 13: 3 03/16 12:43 Order name: NT PRO-BNP; Complete Time: 13: 3 03/16 12:43 Order name: PT-INR; Complete Time: 13: 3 03/16 12:43 Order name: Troponin HS; Complete Time: 13:29 3 03/16 12:43 Order name: XRAY Chest (1 view); Complete Time: 14:00 3 03/16 12:43 Order name: CT Aorta for Dissection; Complete Time: 14:06 3 03/16 12:43 Order name: EKG; Complete Time: 12:43 3 03/16 12:43 Order name: Cardiac monitoring; Complete Time: 12:45 3 03/16 12:43 Order name: EKG - Nurse/Tech; Complete Time: 12:45 3 03/16 12:43 Order name: IV Saline Lock; Complete Time: 12:45 3 03/16 12:43 Order name: Labs collected and sent; Complete Time: 13:03 3 03/16 12:43 Order name: O2 Per Protocol; Complete Time: 12:45 3 03/16 12:43 Order name: O2 Sat Monitoring; Complete Time: 12:45 sp3 Administered Medications: 14:45 Drug: hydrALAZINE IVP 10 mg IVP once Route: IVP; Site: right forearm; ko1 15:28 Drug: Ondansetron IVP 4 mg IVP once; over 2 minutes Route: IVP; Site: right forearm; ko1 15:37 Drug: hydrALAZINE IVP 10 mg IVP once Route: IVP; Site: right forearm; ko1 15:37 Drug: HYDROmorphone IVP 1 mg IVP once Route: IVP; Site: right forearm; ko1 Disposition Summary: 03/16/23 14:26 Transfer Ordered Notes: Transfer Location: [facility] sp3 Reason: Higher level of care sp3 Condition: Stable sp3 Problem: an acute exacerbation sp3 Symptoms: have worsened sp3 Accepting Physician: Surgery Team JAY(03/16/23 16:49) ko1 Diagnosis - 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 Head/Face: Normocephalic, atraumatic. Eyes: Pupils equal round and reactive to light, extra-ocular motions intact. Lids and lashes normal. Conjunctiva and sclera are non-icteric and not injected. Cornea within normal limits. Periorbital areas with no swelling, redness, or edema. ENT: Nares patent. No nasal discharge, no septal abnormalities noted. External auditory canals are clear. Oropharynx with no redness, swelling, or masses, exudates, or evidence of obstruction, uvula midline. Mucous membranes moist. Neck: Trachea midline, no thyromegaly or masses palpated, and no cervical lymphadenopathy. Supple, full range of motion without nuchal rigidity, or vertebral point tenderness. No Meningismus. Chest/axilla: Normal chest wall appearance and motion. Nontender with no deformity. No lesions are appreciated. Respiratory: Lungs have equal breath sounds bilaterally, clear to auscultation and percussion. No rales, rhonchi or wheezes noted. No increased work of breathing, no retractions or nasal flaring. Abdomen/GI: Soft, non-tender, with normal bowel sounds. No distension or tympany. No guarding or rebound. No evidence of tenderness throughout. Back: No spinal tenderness. No costovertebral tenderness. Full range of motion. Skin: Warm, dry with normal turgor. Normal color with no rashes, no lesions, and no evidence of cellulitis. MS/ Extremity: Pulses equal, no cyanosis. Neurovascular intact. Full, normal range of motion. Neuro: Awake and alert, GCS 15, oriented to person, place, time, and situation. Cranial nerves II-XII grossly intact. Motor strength 5/5 in all extremities. Sensory grossly intact. Cerebellar exam normal. Normal gait. Psych: Awake, alert, with orientation to person, place and time. Behavior, mood, and affect are within normal limits. sp3 16:49 14:26 Surgery Team TBD sp3 ko1
[2023-03-16 17:54] VITALS: TEMP 98.2; O2SAT 99
[2023-03-16 18:04] VITALS: BP 110/78
--- NOTE | 2023-03-18 13:29 | EKG ---
Test Date: 2023-03-16 Test Time: 12:45:39 Election Supervisor: ENDY MEASUREMENT RESULTS: Intervals: Rate: 66 SD: 158 QRSD: 96 QT: 404 QTc: 423 [place]: P: 66 SD: 158 QRS: 16 T: -9 INTERPRETIVE STATEMENTS: Sinus rhythm with frequent premature ventricular complexes in a pattern of bigeminy ST & T wave abnormality, consider inferior ischemia Abnormal ECG Compared to ECG 08/18/2021 09:23:59 Ventricular premature complex(es) now present ST (T wave) deviation now present Possible ischemia now present Sinus bradycardia no longer present Left ventricular hypertrophy no longer present T-wave abnormality no longer present Electronically Signed On 03-18-23 13:24:36 [employer] CONTR[employer] by Tal Tafoya
== END ==
LOC: ER 12:35
DX: Q25.43 Congenital aneurysm of aorta (principal); R55 Syncope and collapse; M54.9 Dorsalgia, unspecified; R53.1 Weakness; E11.9 Type 2 diabetes mellitus without complications; I10 Essential (primary) hypertension; J44.9 Chronic obstructive pulmonary disease, unspecified; G30.9 Alzheimer's disease, unspecified; F02.80 Dementia in other diseases classified elsewhere, unspecified severity, without behavioral disturbance, psychotic disturbance, mood disturbance, and anxiety; Z88.8 Allergy status to other drugs, medicaments and biological substances; Z91.048 Other nonmedicinal substance allergy status
CPT/HCPCS: 93005; 85025; 80048; 36415; 83735; 85610; 80076; 84484; 83880; 71275; 74175; 71045; 96375; 96374; 99285; Q9967; J0360 ×2; J1170; J2405